=== PATIENT | female | born 1965 | race Asian ===

== ENCOUNTER → 2019-06-16 07:50 | Outpatient (CLI) | payer BC, SELFPAY ==
[2019-06-16 08:16] LABS: Add Manual Diff / Slide Review NO; Basophils Absolute Auto 0 /uL (0-100); Basophils Percent Auto 0.9 % (0-2); Eosinophils Absolute Auto 100 /uL (0-450); Eosinophils Percent Auto 1.3 % (2-4); Hematocrit 40.8 % (36-46); Hemoglobin 14.3 g/dL (12.0-16.0); Lymphocytes Absolute Auto 1900 /uL (1100-4500); Lymphocytes Percent Auto 34.4 % (25-40); Mean Corpuscular Hemoglobin 31.8 PG (26-34); Mean Corpuscular Volume 90.8 fL (80-100); Monocytes Absolute Auto 400 /uL (0-900); Monocytes Percent Auto 6.7 % (3-14); Neutrophils Absolute Auto 3100 /uL (1500-7000); Neutrophils Percent Auto 56.7 % (50-75); Platelet Count 245 X10^3/uL (150-400); Red Blood Cell Count 4.49 X10^6/uL (4.0-5.2); Red Cell Distribution Width 13.2 % (11.6-14.8); White Blood Cell Count 5.4 X10^3/uL (4.5-11.0)
[2019-06-16 08:26] LABS: Alanine Aminotransferase 16 IU/L (<35); Albumin 4.7 g/dL (3.5-5.0); Albumin Globulin Ratio 1.3 (1.0-2.8); Alkaline Phosphatase 55 U/L (38-126); Aspartate Aminotransferase 32 IU/L (14-36); BUN Creatinine Ratio 24.5 (6-22); Blood Urea Nitrogen 13 mg/dL (7-17); Calcium 9.5 mg/dL (8.4-10.2); Carbon Dioxide 28 mmol/L (22-32); Chloride 106 mmol/L (98-107); Cholesterol 221 mg/dL (140-199); Estimated Glomerular Filt Rate > 60.0 mL/min (>60); Globulin 3.5 g/dL (1.7-4.1); Glucose 100 mg/dL (70-100); HDL Cholesterol 61 mg/dL (40-60); HEMOLYSIS < 15 (0-50); LDL Cholesterol Calculated 146 mg/dL (<100); Potassium 3.7 mmol/L (3.4-5.1); Sodium 142 mmol/L (137-145); Total Protein 8.2 g/dL (6.3-8.2); Triglycerides 69 mg/dL (35-150)
[2019-06-16 10:15] LABS: Free T3, Triiodothyronine Free 3.27 pg/mL (2.77-5.27)
[2019-06-16 10:30] LABS: Thyroid Stimulating Hormone 1.19 uIU/mL (0.47-4.68)
== END ==
PROVIDERS: PCP Family Medicine; Referring Provider Family Medicine; Visit Provider Family Medicine
DX: Z13.220 Encounter for screening for lipoid disorders (principal); Z86.39 Personal history of other endocrine, nutritional and metabolic disease; E03.9 Hypothyroidism, unspecified; E55.9 Vitamin D deficiency, unspecified
CPT/HCPCS: 36415; 80053; 80061; 82306; 84439; 84443; 84481; 85025

== ENCOUNTER → 2020-04-08 15:21 | Outpatient (CLI) | payer OTHER, SELFPAY ==
--- NOTE | 2020-04-08 | DI.CT.S_ITS ---
PROCEDURE: CT HEAD/BRAIN WO CON INDICATIONS: Headache, unspecified TECHNIQUE: Noncontrast 4.5 mm thick angled axial sections acquired from the foramen magnum to the vertex, with coronal and sagittal reformats. For radiation dose reduction, the following was used: automated exposure control, adjustment of mA and/or kV according to patient size. COMPARISON: [facility], CT, CT HEAD WITHOUT CONTRAST, 03/01/2020, 19:11. FINDINGS: Image quality: Excellent. CSF spaces: Basal cisterns are patent. No extra-axial fluid collections. Ventricles are normal in size and shape. Brain: No midline shift. No intracranial masses or hemorrhage. Mir-white matter interface is normal. Skull and face: Calvarium and visualized facial bones are intact, without suspicious lesions. Sinuses: Visualized sinuses and mastoids are clear. IMPRESSION: No acute intracranial abnormality. Dictated by: Chava Paula M.D. on 04/08/2020 at 15:52 Approved by: Chava Paula M.D. on 04/08/2020 at 15:53
== END ==
PROVIDERS: PCP Family Medicine; Referring Provider Internal Medicine; Visit Provider Internal Medicine
DX: R51.9 Headache, unspecified (principal)
CPT/HCPCS: 70450

== ENCOUNTER → 2020-05-22 07:54 | Outpatient (CLI) | payer OTHER, SELFPAY ==
[2020-05-22 09:02] LABS: Alanine Aminotransferase 17 IU/L (<35); Albumin 4.2 g/dL (3.5-5.0); Albumin Globulin Ratio 1.4 (1.0-2.8); Alkaline Phosphatase 62 U/L (38-126); Aspartate Aminotransferase 26 IU/L (14-36); BUN Creatinine Ratio 22.8 (6-22); Bilirubin Total 0.7 mg/dL (0.2-1.3); Blood Urea Nitrogen 13 mg/dL (7-17); Calcium 9.4 mg/dL (8.4-10.2); Carbon Dioxide 25 mmol/L (22-32); Chloride 104 mmol/L (98-107); Cholesterol 231 mg/dL (140-199); Estimated Glomerular Filt Rate > 60.0 mL/min (>60); Globulin 3.1 g/dL (1.7-4.1); Glucose 96 mg/dL (70-100); HDL Cholesterol 68 mg/dL (40-60); HEMOLYSIS < 15 (0-50); LDL Cholesterol Calculated 147 mg/dL (<100); Potassium 3.9 mmol/L (3.4-5.1); Sodium 140 mmol/L (137-145); Total Protein 7.3 g/dL (6.3-8.2); Triglycerides 80 mg/dL (35-150)
== END ==
PROVIDERS: PCP Internal Medicine; Referring Provider Internal Medicine; Visit Provider Internal Medicine
DX: E78.5 Hyperlipidemia, unspecified (principal)
CPT/HCPCS: 36415; 80053; 80061; 84443

== ENCOUNTER → 2020-12-24 07:38 | Outpatient (CLI) | payer OTHER, SELFPAY ==
[2020-12-24 09:59] LABS: COVID19 -Nasal RAPID POSITIVE (Negative)
== END ==
PROVIDERS: PCP Internal Medicine; Referring Provider Nurse Practitioner Family; Visit Provider Nurse Practitioner Family
DX: Z20.822 Contact with and (suspected) exposure to COVID-19 (principal)
CPT/HCPCS: 87635

== ENCOUNTER → 2021-06-11 15:40 | Outpatient (CLI) | payer OTHER, SELFPAY ==
--- NOTE | 2021-06-11 | DI.MG.S_ITS ---
BILATERAL DIGITAL SCREENING MAMMOGRAM 3D/2D WITH CAD: 06/11/2021 CLINICAL: Routine screening. Comparison is made to exams dated: 01/14/2017 mammogram, 10/04/2015 mammogram, and 07/05/2013 mammogram - outside location. The tissue of both breasts is heterogeneously dense. This may lower the sensitivity of mammography. Current study was also evaluated with a Computer Aided Detection (CAD) system. No significant masses, calcifications, or other findings are seen in either breast. There has been no significant interval change. IMPRESSION: NEGATIVE There is no mammographic evidence of malignancy. A 1 year screening mammogram is recommended. This exam was interpreted at Station ID: [id number]. NOTE: For mammograms, a report in lay terms will be sent to the patient. Approximately 15% of breast malignancies will not be visualized mammographically. In the management of a palpable breast mass, a negative mammogram must not discourage biopsy of a clinically suspicious lesion. Electronically Signed By: Ajay chanel/tori:06/11/2021 16:47:17 letter sent: Normal Exam ACR BI-RADS Category 1: Negative [id number]
== END ==
PROVIDERS: PCP Internal Medicine; Referring Provider Internal Medicine; Visit Provider Internal Medicine
DX: Z12.31 Encounter for screening mammogram for malignant neoplasm of breast (principal)
CPT/HCPCS: 77063; 77067

== ENCOUNTER → 2022-01-20 13:43 | Outpatient (CLI) | payer OTHER, SELFPAY ==
--- NOTE | 2022-01-20 | DI.MRI.S_ITS ---
PROCEDURE: MR HEAD/BRAIN WO CON INDICATIONS: CHRONIC POST TRAUMATIC HEADACHE TECHNIQUE: Noncontrast axial T1 spin echo, axial T2 fast spin echo, sagittal and axial FLAIR, coronal T2 fast spin echo, axial gradient echo, axial diffusion and ADC through the brain. COMPARISON: None. FINDINGS: Image quality: Excellent. CSF Spaces: Basal cisterns are patent. No extra-axial fluid collections. Ventricles are normal in size and shape. Brain: No intracranial masses or hemorrhage. There is mild diffuse cerebral volume loss. Minimal degree of scattered punctate high FLAIR signal foci within the periventricular and subcortical white matter. Mir/white matter interface is normal. Brainstem appears normal. Diffusion-weighted images demonstrate no acute ischemic insult. No chronic ischemic insults. Normal intravascular flow voids are present. Skull and face: Calvarium has normal marrow signal. Orbits appear normal. Sinuses: Sinuses and mastoids are clear. IMPRESSION: 1. No acute process. 2. Mild volume loss. Minimal small vessel ischemic disease. 3. No recent infarct. Dictated by: Marlin Gutierres M.D. on 01/20/2022 at 14:17 Transcribed by: MANUEL on 01/20/2022 at 14:25 Approved by: Marlin Gutierres M.D. on 01/20/2022 at 15:25
== END ==
PROVIDERS: PCP Internal Medicine; Referring Provider Internal Medicine; Visit Provider Internal Medicine
DX: G44.329 Chronic post-traumatic headache, not intractable (principal)
CPT/HCPCS: 70551

== ENCOUNTER 2022-04-26 10:06 | Observation (INO) | payer OTHER, SELFPAY ==
[2022-04-26] VITALS (17 sets, daily range): BP systolic 119–190; BP diastolic 51–99; PULSE 54–62; RESP 16–20; TEMP 36.6–36.9; O2SAT 91–990; BMI 22.8
--- NOTE | 2022-04-26 10:19 | ED.ABDPAIN ---
HPI - Abdominal Pain General Stated Complaint: lower abd pain Time Seen by Provider: 04/26/22 10:16 History of Present Illness HPI narrative: Patient comes in with less than 24 hours of abdominal pain and nausea. The pain started last night. It is associated with nausea but not vomiting. No dysuria, no diarrhea. No flank pain. No chest pain no shortness of breath. No fever. No previous abdominal surgeries. She did have takasubo's cardiomyopathy some years ago. Again she has no chest pain. Pain was initially right lower quadrant but now is more generalized. She did have a bowel obstruction resolved with decompression some years ago. She does not consume alcohol. Normal bowel movement this morning. Related Data Previous Rx's Medication Instructions Recorded albuterol sulfate 90 mcg/actuation 2 puff inhalation Q4-6H PRN 02/03/19 aerosol inhaler (Ventolin HFA) shortness of breath or wheezing #8.5 grams inhalational spacing device #1 ea 02/03/19 (Aerochamber Plus Z Stat spacer) acyclovir 400 mg tablet 400 mg PO TID #30 tabs 04/26/19 estradiol 0.01% (0.1 mg/gram) 1 gram vaginal DAILY #42.5 grams 07/28/19 vaginal cream (Estrace) levothyroxine 75 mcg tablet 75 mcg PO DAILY #90 tabs 02/20/20 (Synthroid) benzonatate 100 mg capsule 100 mg PO BID PRN cough #20 caps 12/24/20 (Tessalon Perles) Allergies Allergy/AdvReac Type Severity Reaction Status Date / Time No Known Drug Allergies Allergy Verified 08/15/21 15:57 Patient History Medical History (Updated 12/24/20 @ 08:16 by PARVEEN Rush) Bilateral foot pain Cervical somatic dysfunction Chronic neck pain Chronic thoracic back pain Cranial somatic dysfunction Family history of breast cancer in first degree relative Head injury Hx of radioactive iodine thyroid ablation Hypothyroidism (acquired) Neck stiffness Segmental and somatic dysfunction of rib cage Shoulder pain Skin rash Somatic dysfunction of lower extremity Thoracic region somatic dysfunction Thyroid nodule Vaginal dryness, menopausal Well woman exam with routine gynecological exam Family History Father Stroke Mother Stroke Social History Smoking Status: Never smoker alcohol intake: never substance use type: does not use Smoking Status: Never smoker Exam Narrative Exam Narrative: GENERAL: Alert, cooperative and in no distress. HEAD: Atraumatic. Normocephalic. EYES: Sclera are clear without icterus. Extraocular movements are full. ENT: No rhinorrhea. Oropharynx is moist. Mouth exam is benign. NECK: Supple. Full range of motion. CARDIOVASCULAR: Normal rate and rhythm without murmur gallop or rub. RESPIRATORY: Clear to auscultation. Breath sounds equal bilaterally. No wheezes, rales, or rhonchi. GASTROINTESTINAL: Soft, no guarding. Diffuse tenderness is present. No rebound tenderness. Normal bowel sounds EXTREMITIES: No edema, full range of motion. No obvious trauma. BACK: Normal inspection, no CVA tenderness. NEURO: Nonfocal examination, normal speech, normal gait. SKIN: No rash or erythema of visible areas PSYCH: Normally oriented. Normal range of affect. Appropriate behavior Discharge Plan Departure Prescriptions: No Action albuterol sulfate [Ventolin HFA] 90 mcg/actuation HFA aerosol inhaler 2 puff INHALATION Q4-6H PRN (Reason: shortness of breath or wheezing) Qty: 8.5 0RF (DME) Aerochamber Plus Z Stat Spacer See Rx Instructions .ROUTE .MEDSUPPLY Qty: 1 0RF Rx Instructions: As directed levothyroxine [Synthroid] 75 mcg tablet 75 mcg PO DAILY Qty: 90 1RF benzonatate [Tessalon Perles] 100 mg capsule 100 mg PO BID PRN (Reason: cough) Qty: 20 0RF acyclovir 400 mg tablet 400 mg PO TID Qty: 30 1RF estradiol [Estrace] 0.01 % (0.1 mg/gram) cream 1 gram VAG DAILY Qty: 42.5 0RF Rx Instructions: for 14 days, then twice weekly Referrals: Lise Hutchins MD [Primary Care Provider] -
--- NOTE | 2022-04-26 10:22 | DI.CT.S_ITS ---
PROCEDURE: CT ABDOMEN PELVIS W CON INDICATIONS: Fever and abdominal pain TECHNIQUE: After the administration of intravenous contrast, axial sections acquired from the lung bases to the pubic symphysis. Coronal and sagittal reformats were performed. For radiation dose reduction, the following was used: automated exposure control, adjustment of mA and/or kV according to patient size. COMPARISON: None. FINDINGS: Image quality: Excellent. Lung bases: Unremarkable. Heart: No significant findings. ABDOMEN: Liver: Hepatic cyst near the liver. Hepatic steatosis with geographic fatty infiltration near the falciform ligament.. Gallbladder: Unremarkable. Biliary ducts: Unremarkable. Pancreas: Unremarkable. Spleen: Unremarkable. Adrenal Glands: Unremarkable. Kidneys and Ureters: Unremarkable. Stomach and Bowel: Multiple loops of fluid-filled small bowel with mild distention with a transition point within the right lower quadrant. Scattered colon diverticula without evidence of acute diverticulitis. Peritoneum: No abnormal intraperitoneal fluid. No free air. Ventral Wall: No hernias. Abdominal Nodes: No retroperitoneal or mesenteric adenopathy by size criteria. Vessels: Aorta and inferior vena cava are normal in size. PELVIS: Pelvic Organs: Unremarkable. Bladder: Unremarkable. Pelvic Nodes: No enlarged lymph nodes. Miscellaneous: No hernias are seen. Bones: Unremarkable. IMPRESSION: Dilated loops of small bowel with transition point in right lower quadrant consistent with small bowel obstruction. Dictated by: Adriel Paula M.D. on 04/26/2022 at 10:16 Approved by: Adriel Paula M.D. on 04/26/2022 at 10:24
[2022-04-26 10:34] LABS: Add Manual Diff / Slide Review NO; Basophils Absolute Auto 0 /uL (0-100); Basophils Percent Auto 0.4 % (0-2); Eosinophils Absolute Auto 0 /uL (0-450); Eosinophils Percent Auto 0.4 % (2-4); Hematocrit 42.8 % (36-46); Hemoglobin 14.7 g/dL (12.0-16.0); Lymphocytes Absolute Auto 1900 /uL (1100-4500); Lymphocytes Percent Auto 15.6 % (25-40); Mean Corpuscular HGB Conc 34.3 % (30-36); Mean Corpuscular Hemoglobin 31.2 PG (26-34); Monocytes Absolute Auto 400 /uL (0-900); Monocytes Percent Auto 3.3 % (3-14); Neutrophils Absolute Auto 9800 /uL (1500-7000); Neutrophils Percent Auto 80.3 % (50-75); Platelet Count 292 X10^3/uL (150-400); White Blood Cell Count 12.2 X10^3/uL (4.5-11.0)
[2022-04-26 10:45] LABS: Alanine Aminotransferase 21 IU/L (<35); Albumin 4.7 g/dL (3.5-5.0); Albumin Globulin Ratio 1.2 (1.0-2.8); Alkaline Phosphatase 60 U/L (38-126); Aspartate Aminotransferase 32 IU/L (14-36); BUN Creatinine Ratio 26.1 (6-22); Bilirubin Total 0.9 mg/dL (0.2-1.3); Blood Urea Nitrogen 12 mg/dL (7-17); Calcium 9.5 mg/dL (8.4-10.2); Carbon Dioxide 24 mmol/L (22-32); Chloride 105 mmol/L (98-107); Estimated Glomerular Filt Rate > 60 mL/min (>60); Globulin 3.9 g/dL (1.7-4.1); Glucose 103 mg/dL (70-100); HEMOLYSIS 68 (0-50); Lipase 186 U/L (23-300); Potassium 4.2 mmol/L (3.4-5.1); Sodium 138 mmol/L (137-145); Total Protein 8.6 g/dL (6.3-8.2)
[2022-04-26 10:48] LABS: COVID19 -Nasal RAPID Negative (Negative)
--- NOTE | 2022-04-26 11:09 | ED.GENADULT ---
HPI - General Adult General Chief complaint: Abdominal Pain Stated complaint: lower abd pain Time Seen by Provider: 04/26/22 10:16 History of Present Illness HPI narrative: This note should be merged with my other note from today Related Data Previous Rx's Medication Instructions Recorded albuterol sulfate 90 mcg/actuation 2 puff inhalation Q4-6H PRN 02/03/19 aerosol inhaler (Ventolin HFA) shortness of breath or wheezing #8.5 grams inhalational spacing device #1 ea 02/03/19 (Aerochamber Plus Z Stat spacer) acyclovir 400 mg tablet 400 mg PO TID #30 tabs 04/26/19 estradiol 0.01% (0.1 mg/gram) 1 gram vaginal DAILY #42.5 grams 07/28/19 vaginal cream (Estrace) levothyroxine 75 mcg tablet 75 mcg PO DAILY #90 tabs 02/20/20 (Synthroid) benzonatate 100 mg capsule 100 mg PO BID PRN cough #20 caps 12/24/20 (Tessalon Perlmark) Allergies Allergy/AdvReac Type Severity Reaction Status Date / Time No Known Drug Allergies Allergy Verified 08/15/21 15:57 Patient History Medical History (Updated 12/24/20 @ 08:16 by PARVEEN Rush) Bilateral foot pain Cervical somatic dysfunction Chronic neck pain Chronic thoracic back pain Cranial somatic dysfunction Family history of breast cancer in first degree relative Head injury Hx of radioactive iodine thyroid ablation Hypothyroidism (acquired) Neck stiffness Segmental and somatic dysfunction of rib cage Shoulder pain Skin rash Somatic dysfunction of lower extremity Thoracic region somatic dysfunction Thyroid nodule Vaginal dryness, menopausal Well woman exam with routine gynecological exam Family History Father Stroke Mother Stroke Social History Smoking Status: Never smoker alcohol intake: never substance use type: does not use Smoking Status: Never smoker Exam Initial Vital Signs Initial Vital Signs: Vital Signs Pulse Rate 62 04/26/22 10:32 Respiratory Rate 16 04/26/22 10:32 Blood Pressure 186/86 H 04/26/22 10:32 Pulse Oximetry 100 04/26/22 10:32 Oxygen Delivery Method Room Air 04/26/22 10:32 Course Course Course Narrative: Fairly severe abdominal pain that is diffuse. Will proceed with CBC, CMP, lipase, urinalysis and CT abdomen and pelvis with contrast. Laboratory data is largely reassuring other than mild leukocytosis. Lipase and CMP are unremarkable. 1137: CT shows a small bowel obstruction will admit to the hospital. Laboratory data is largely reassuring. Orders Ordered: ED Orders 04/26/22 10:22 CT abdomen pelvis w con Stat UA dip and micro [Urinalysis and Microscopic] Stat 04/26/22 10:25 CBC Auto Diff [Complete Blood Count AUTO DIFF] Stat CMP [Comprehensive Metabolic Panel] Stat Lipase Stat 04/26/22 10:30 COVID19 -Nasal RAPID Stat Ondansetron HCl (Ondansetron 4 Mg/2 Ml Inj) 4 mg IV Q2HR PRN PRN Reason: Nausea And Vomiting Last Admin: 04/26/22 11:18 Dose: 4 mg Discontinued Medications Acetaminophen (Acetaminophen 325 Mg Tablet) 975 mg PO NOW ONE Stop: 04/26/22 10:22 Last Admin: 04/26/22 11:18 Dose: Not Given Sodium Chloride (Normal Saline 0.9%) 1,000 mls @ 1,000 mls/hr IV BOLUS ONE Stop: 04/26/22 11:20 Last Admin: 04/26/22 11:18 Dose: 1,000 mls/hr Ketorolac Tromethamine (Ketorolac 30 Mg/Ml Vial) 15 mg IV NOW ONE Stop: 04/26/22 10:22 Last Admin: 04/26/22 11:18 Dose: 15 mg Vital Signs Vital signs: Vital Signs - 8 hr 04/26/22 10:32 Pulse Rate 62 Respiratory Rate 16 Blood Pressure 186/86 H Pulse Oximetry 100 Oxygen Delivery Method Room Air Medical Decision Making Lab Data 04/26/22 10:25 04/26/22 10:25 Labs: Lab Results 04/26/22 04/26/22 04/26/22 Range/Units 10:25 10:25 10:30 WBC 12.2 H (4.5-11.0) X10^3/uL RBC 4.70 (4.0-5.2) X10^6/uL Hgb 14.7 (12.0-16.0) g/dL Hct 42.8 (36-46) % MCV 91.0 (80-100) fL MCH 31.2 (26-34) PG MCHC 34.3 (30-36) % RDW 13.0 (11.6-14.8) % Plt Count 292 (150-400) X10^3/uL Neut % (Auto) 80.3 H (50-75) % Lymph % (Auto) 15.6 L (25-40) % [place] % (Auto) 3.3 (3-14) % Eos % (Auto) 0.4 L (2-4) % Baso % (Auto) 0.4 (0-2) % Neut # (Auto) 9800 H (5033-6311) /uL Lymph # (Auto) 1900 (1162-8893) /uL [place] # (Auto) 400 (0-900) /uL Eos # (Auto) 0 (0-450) /uL Baso # (Auto) 0 (0-100) /uL Sodium 138 (137-145) mmol/L Potassium 4.2 (3.4-5.1) mmol/L Chloride 105 (98-107) mmol/L Carbon Dioxide 24 (22-32) mmol/L BUN 12 (7-17) mg/dL Creatinine 0.46 L (0.52-1.04) mg/dL Estimated GFR > 60 (>60) mL/min BUN/Creatinine Ratio 26.1 H (6-22) Glucose 103 H (70-100) mg/dL Calcium 9.5 (8.4-10.2) mg/dL Total Bilirubin 0.9 (0.2-1.3) mg/dL AST 32 (14-36) IU/L ALT 21 (<35) IU/L Alkaline Phosphatase 60 (38-126) U/L Total Protein 8.6 H (6.3-8.2) g/dL Albumin 4.7 (3.5-5.0) g/dL Globulin 3.9 (1.7-4.1) g/dL Albumin/Globulin Ratio 1.2 (1.0-2.8) Lipase 186 (23-300) U/L SARS-CoV-2 (PCR) Negative (Negative) Discharge Plan Departure Prescriptions: No Action albuterol sulfate [Ventolin HFA] 90 mcg/actuation HFA aerosol inhaler 2 puff INHALATION Q4-6H PRN (Reason: shortness of breath or wheezing) Qty: 8.5 0RF (DME) Aerochamber Plus Z Stat Spacer See Rx Instructions .ROUTE .MEDSUPPLY Qty: 1 0RF Rx Instructions: As directed levothyroxine [Synthroid] 75 mcg tablet 75 mcg PO DAILY Qty: 90 1RF benzonatate [Tessalon Perles] 100 mg capsule 100 mg PO BID PRN (Reason: cough) Qty: 20 0RF acyclovir 400 mg tablet 400 mg PO TID Qty: 30 1RF estradiol [Estrace] 0.01 % (0.1 mg/gram) cream 1 gram VAG DAILY Qty: 42.5 0RF Rx Instructions: for 14 days, then twice weekly Referrals: Lise Hutchins MD [Primary Care Provider] -
[2022-04-26] MEDS: SODIUM CHLORIDE 0.9% 1,000 ML 1000 ML IV (11:18)
[2022-04-26] MEDS: KETOROLAC 30 MG/ML VIAL 15 MG IV ×2 (11:18→17:25)
[2022-04-26] MEDS: ONDANSETRON 4 MG/2 ML INJ IV (11:18)
[2022-04-26 12:29] LABS: Appearance Urine UA CLEAR; Bilirubin Urine UA NEGATIVE (NEGATIVE); Color Urine UA YELLOW; Glucose Urine UA NEGATIVE (Negative); Ketones Urine UA TRACE (NEGATIVE); Leukocyte Esterase Urine UA NEGATIVE (NEGATIVE); Nitrite Urine UA NEGATIVE (Negative); Occult Blood Urine UA NEGATIVE (Negative); Protein Urine UA NEGATIVE (Negative); Urobilinogen Urine UA 0.2 E.U./dL (0.2)
[2022-04-26 12:30] LABS: pH Urine UA 5.5 (4.5-8.0)
[2022-04-26 12:38] LABS: Bacteria Urine Occasional (0-1); Culture Indicated Urine Cult Not Indicated; RBC Urine 0-1/HPF (0-5/HPF); Squamous Epithelial Cell Urine 0-1 /HPF (0-5/HPF); WBC Urine 0-1/HPF (0-5/HPF)
--- NOTE | 2022-04-26 13:16 | P.HP_ITS ---
History of Present Illness History of Present Illness Date Patient Seen: 04/26/22 Time Patient Seen: 15:00 Date of Onset of Symptoms: 04/26/22 Chief complaint: lower abd pain Narrative: 57 yea old female with PMH of takotsubo's cardiomyopathy (2020), hypothyroidism, prior SBO, who presents with one day abdominal pain. Pain started very early this morning, she denies any nausea. Pain is diffuse, feels like a distension. There is no radiation. She did have a normal bowel movement this morning. She had two prior SBOs in the past, and initially stated she did not have any previous abdominal surgeries but later endorsed tubal ligation to this provider. She denies fever, chills, chest pain, shortness of breath, dysuria, urinary frequency, hematuria, melena or hematochezia. In the ER, CT scan showed an SBO with transition point in the RLQ. Vital signs were notable for mild hypertension. Labs notable for a mild leukocytosis with WBC 12.2, but the remainder or her labs were unremarkable including chemistries. UA was not indicative for infection. [facility]'s sanitation equipement is currently not functional, general surgery was contacted by the emergency room physician who stated there would be no issues should patient require surgery, and okay for admission here. She was admitted for further management. NG tube placement was unsuccessful in the ER, given lack of vomiting repeat attempts were not made at this time. No EKG was performed, this has been ordered. Patient History Medical History Bilateral foot pain Cervical somatic dysfunction Chronic neck pain Chronic thoracic back pain Cranial somatic dysfunction Family history of breast cancer in first degree relative Head injury History of left heart catheterization Hx of radioactive iodine thyroid ablation Hypothyroidism (acquired) Neck stiffness Segmental and somatic dysfunction of rib cage Shoulder pain Skin rash Somatic dysfunction of lower extremity Thoracic region somatic dysfunction Thyroid nodule Vaginal dryness, menopausal Well woman exam with routine gynecological exam Surgical History H/O tubal ligation Family & Social History Family History Father Stroke Mother Stroke Safety & Behavioral: Feels Safe in Current Yes Environment Been Physically Hurt or No Threatened By a Person Tobacco & Substance use: Smoking Status Never smoker alcohol intake never Meds Home Medications and Allergies Home Medications Medication Instructions Recorded Confirmed Type levothyroxine 75 mcg tablet 75 mcg PO DAILY #90 tabs 02/20/20 04/26/22 Rx (Synthroid) lisinopril 20 mg tablet 20 mg PO DAILY 04/26/22 04/26/22 History Allergies Allergy/AdvReac Type Severity Reaction Status Date / Time bacitracin AdvReac Intermediate Rash Verified 04/26/22 14:01 Review of Systems Review of Systems Narrative: All other systems reviewed with the patient and are negative unless otherwise stated. Exam Vital Signs (past 8 hours): - 04/26/22 10:32 04/26/22 10:28 04/26/22 10:29 Pulse Rate 62 62 62 Respiratory Rate 16 Blood Pressure 186/86 H Pulse Oximetry 100 100 100 Oxygen Delivery Method Room Air 04/26/22 10:29 04/26/22 10:30 04/26/22 11:00 Pulse Rate 60 62 Respiratory Rate Blood Pressure 167/79 H Pulse Oximetry 91 100 Oxygen Delivery Method 04/26/22 11:30 04/26/22 11:57 04/26/22 11:57 Pulse Rate 56 L 54 L Respiratory Rate Blood Pressure 143/67 H Pulse Oximetry 97 98 Oxygen Delivery Method 04/26/22 12:00 04/26/22 12:00 04/26/22 12:28 Pulse Rate 54 L 60 Respiratory Rate Blood Pressure 128/64 Pulse Oximetry 98 92 Oxygen Delivery Method Room Air 04/26/22 12:28 04/26/22 12:30 04/26/22 12:31 Pulse Rate 56 L 57 L Respiratory Rate Blood Pressure 163/74 H Pulse Oximetry 100 100 Oxygen Delivery Method 04/26/22 12:31 04/26/22 12:34 04/26/22 12:34 Pulse Rate 58 L Respiratory Rate Blood Pressure 145/82 H 119/99 H Pulse Oximetry 100 Oxygen Delivery Method 04/26/22 13:00 04/26/22 13:00 Pulse Rate 54 L Respiratory Rate Blood Pressure 162/77 H Pulse Oximetry 98 Oxygen Delivery Method Room Air Oxygen Delivery Method Room Air Narrative Exam Narrative: General:? Patient is well developed and well nourished, in no distress at this time. HEENT:? Normocephalic, atraumatic, extraocular muscles intact, oral pharynx is clear and mucous membranes are moist. Neck: supple and symmetric, trachea is midline, no cervical adenopathy. Negative for JVD Chest:? Normal AP diameter and contour without kyphoscoliosis, no tachypnea, equal chest rise bilaterally. Lungs:? CTA b/l no wheezing rhonchi or rales. Cardio:?RRR no m/r/g. Abdomen: soft non-distended, diffuse mild tenderness (not localized to any particular quadrant). Musculoskeletal:? Muscle strength and tone are equal within normal limits, no deformity. Extremities: No edema or joint effusions. No cyanosis or clubbing. Skin:? Pale,? Warm to touch,dry and intact without rashes, ulcerations or petechiae.? Neuro:? Alert and orientated x3,? sensation to touch intact in all extremities, no gross deficits noted of cranial nerves. Psych:? Patient has a well-kept appearance, appropriate affect, mental status attitude thought context and judgment are appropriate for age. Objective Labs 04/26/22 10:25 04/26/22 10:25 Labs: Laboratory Results - last 24 hr 04/26/22 04/26/22 04/26/22 10:25 10:25 10:30 WBC 12.2 H RBC 4.70 Hgb 14.7 Hct 42.8 MCV 91.0 MCH 31.2 MCHC 34.3 RDW 13.0 Plt Count 292 Neut % (Auto) 80.3 H Lymph % (Auto) 15.6 L [place] % (Auto) 3.3 Eos % (Auto) 0.4 L Baso % (Auto) 0.4 Neut # (Auto) 9800 H Lymph # (Auto) 1900 [place] # (Auto) 400 Eos # (Auto) 0 Baso # (Auto) 0 Sodium 138 Potassium 4.2 Chloride 105 Carbon Dioxide 24 BUN 12 Creatinine 0.46 L Estimated GFR > 60 BUN/Creatinine Ratio 26.1 H Glucose 103 H Calcium 9.5 Total Bilirubin 0.9 AST 32 ALT 21 Alkaline Phosphatase 60 Total Protein 8.6 H Albumin 4.7 Globulin 3.9 Albumin/Globulin Ratio 1.2 Lipase 186 Urine Color Urine Appearance Urine pH Ur Specific [place] Urine Protein Urine Glucose (UA) Urine Ketones Urine Occult Blood Urine Nitrate Urine Bilirubin Urine Urobilinogen Ur Leukocyte Esterase Urine RBC Urine WBC Ur Squamous Epith Cells Urine Bacteria Ur Culture Indicated? SARS-CoV-2 (PCR) Negative 04/26/22 11:15 WBC RBC Hgb Hct MCV MCH MCHC RDW Plt Count Neut % (Auto) Lymph % (Auto) [place] % (Auto) Eos % (Auto) Baso % (Auto) Neut # (Auto) Lymph # (Auto) [place] # (Auto) Eos # (Auto) Baso # (Auto) Sodium Potassium Chloride Carbon Dioxide BUN Creatinine Estimated GFR BUN/Creatinine Ratio Glucose Calcium Total Bilirubin AST ALT Alkaline Phosphatase Total Protein Albumin Globulin Albumin/Globulin Ratio Lipase Urine Color Yellow Urine Appearance Clear Urine pH 5.5 Ur Specific [place] 1.020 Urine Protein Negative Urine Glucose (UA) Negative Urine Ketones Trace H Urine Occult Blood Negative Urine Nitrate Negative Urine Bilirubin Negative Urine Urobilinogen 0.2 Ur Leukocyte Esterase Negative Urine RBC 0-1/hpf Urine WBC 0-1/hpf Ur Squamous Epith Cells 0-1 /hpf Urine Bacteria Occasional (0-1) Ur Culture Indicated? Cult not indicated SARS-CoV-2 (PCR) Assessment & Plan Assessment & Plan narrative: 1. 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 - CRP and ESR low, mild leukocytosis but suspect reactive. Does have history of tubal ligation after further discussion. - General surgery consultation, ordered via ER provider. Appreciate consultation. - continue NPO, IV fluids for now. - NG tube if emesis, or worsening distension. - symptom relief with pain medication and anti nausea medications prn. 2. HTN - hold given SBO for now, if marked hypertension work on pain control then may consider enaprilat IV as home medication is lisinopril. 3. history of takotsubo's cardiomyopathy - no current symptoms, will check EKG for baseline study but no chest pain. - no indication for echo currently - history of LV thrombus previously on AC, no longer on this medciation - will hold lisinopril as noted above - tele for 24 hours given history of cardiomyopathy, NPO status with possibility for electrolyte abnormalitites. 4. Hypothyroidism - hold home levothyroxine for now, restart when tolerating oral intake. Code: Full, surrogate is beka Dispo: admitted as observation, anticipate discharge home once SBO resolves. I have utilized all available immediate resources to obtain, update, or review the patient's current medications. Covid: Negative Discussed care with patient, ER provider, and spouse at bedside. Additional history obtained via spouse as well as patient and ER provider. Relevant prior documentation including summary regarding takotsubo's diagnosis, relevant lab work and imaging was personally reviewed. Time Spent With Patient Critical Care time: I spent a total of [] minutes of critical care time on this patient's care today; this time is exclusive of procedural time. Quality MIPS - Admit I confirm the patient?s Advance Care Plan is present, Code status is documented, Surrogate decision maker is in patient?s record [If Yes, STOP here]: Yes
[2022-04-26 13:36] LABS: C-Reactive Protein Quant < 0.5 mg/dL (<1.0)
[2022-04-26 13:47] LABS: Erythrocyte Sedimentation Rate 6 MM/HR (0-20)
[2022-04-26] MEDS: LACTATED RINGERS 1,000 ML 100 ML IV (14:09)
[2022-04-27] VITALS: BP 131/77; PULSE 47; RESP 18; TEMP 36.6; O2SAT 98
[2022-04-27] MEDS: LACTATED RINGERS 1,000 ML 100 ML IV (00:16)
[2022-04-27] MEDS: KETOROLAC 30 MG/ML VIAL 15 MG IV ×2 (04:36→10:38)
[2022-04-27 04:41] VITALS: BP 132/54; PULSE 47; RESP 18; TEMP 36.6; O2SAT 98
[2022-04-27 05:09] LABS: Add Manual Diff / Slide Review NO; Basophils Absolute Auto 100 /uL (0-100); Basophils Percent Auto 1.5 % (0-2); Eosinophils Absolute Auto 100 /uL (0-450); Hematocrit 35.6 % (36-46); Hemoglobin 12.3 g/dL (12.0-16.0); Lymphocytes Absolute Auto 1300 /uL (1100-4500); Lymphocytes Percent Auto 24.3 % (25-40); Mean Corpuscular HGB Conc 34.5 % (30-36); Mean Corpuscular Volume 89.9 fL (80-100); Monocytes Absolute Auto 300 /uL (0-900); Monocytes Percent Auto 5.7 % (3-14); Neutrophils Absolute Auto 3600 /uL (1500-7000); Neutrophils Percent Auto 66.5 % (50-75); Platelet Count 243 X10^3/uL (150-400); Red Blood Cell Count 3.96 X10^6/uL (4.0-5.2); Red Cell Distribution Width 12.7 % (11.6-14.8); White Blood Cell Count 5.5 X10^3/uL (4.5-11.0)
[2022-04-27 05:17] LABS: BUN Creatinine Ratio 18.8 (6-22); Blood Urea Nitrogen 9 mg/dL (7-17); Calcium 7.9 mg/dL (8.4-10.2); Carbon Dioxide 26 mmol/L (22-32); Chloride 110 mmol/L (98-107); Estimated Glomerular Filt Rate > 60 mL/min (>60); Glucose 83 mg/dL (70-100); HEMOLYSIS < 15 (0-50); Magnesium 1.9 mg/dL (1.6-2.3); Potassium 3.7 mmol/L (3.4-5.1); Sodium 138 mmol/L (137-145)
[2022-04-27 08:44] VITALS: BP 138/69; PULSE 52; RESP 16; TEMP 36.8; O2SAT 100
--- NOTE | 2022-04-27 09:43 | PM.CN ---
History of Present Illness Consult details Date Patient Seen: 04/27/22 Time Patient Seen: 09:43 Chief complaint: lower abd pain Reason for consult: SBO Requesting provider: Olman Limon Narrative: Couple days of abdominal discomfort and bloating, no BM for >24hrs. Had previous episode that spontaneously resolved. Pain was mid abdomen and crampy. Better today with decreased distention and discomfort. +flatus. Meds Home Medications and Allergies Home Medications Medication Instructions Recorded Confirmed Type levothyroxine 75 mcg tablet 75 mcg PO DAILY #90 tabs 02/20/20 04/26/22 Rx (Synthroid) lisinopril 20 mg tablet 20 mg PO DAILY 04/26/22 04/26/22 History Allergies Allergy/AdvReac Type Severity Reaction Status Date / Time bacitracin AdvReac Intermediate Rash Verified 04/26/22 14:01 Review of Systems Review of Systems ROS: Yes All systems reviewed with the patient and are negative except as otherwise documented Exam Vital Signs (past 8 hours): - 04/27/22 04:41 04/27/22 08:44 Temperature 97.9 F 98.3 F Pulse Rate 47 L 52 L Respiratory Rate 18 16 Blood Pressure 132/54 L 138/69 Pulse Oximetry 98 100 Oxygen Flow Rate 0 0 Oxygen Delivery Method Room Air Oxygen Flow Rate 0 Const General: cooperative, healthy appearing and comfortable [facility] Head: normocephalic and atraumatic Face and sinus: normal facial exam Eyes General: appearance normal, both eyes and all related structures Neck Neck: normal visual inspection and trachea midline Resp Effort & Inspection: normal respiratory effort and able to speak in complete sentences Cardio Rate: regular rate Rhythm: regular rhythm GI Palpation: soft Other: non tender, not distended. Skin General: no rashes or lesions noted and turgor normal Neuro General: patient alert, patient awake and patient oriented x3 Psych Mental Status: mental status grossly normal Judgment: judgment good Objective Labs 04/27/22 04:25 04/27/22 04:25 Labs: Laboratory Results - last 24 hr 04/26/22 04/26/22 04/26/22 10:25 10:25 10:25 WBC 12.2 H RBC 4.70 Hgb 14.7 Hct 42.8 MCV 91.0 MCH 31.2 MCHC 34.3 RDW 13.0 Plt Count 292 Neut % (Auto) 80.3 H Lymph % (Auto) 15.6 L [place] % (Auto) 3.3 Eos % (Auto) 0.4 L Baso % (Auto) 0.4 Neut # (Auto) 9800 H Lymph # (Auto) 1900 [place] # (Auto) 400 Eos # (Auto) 0 Baso # (Auto) 0 ESR 6 Sodium 138 Potassium 4.2 Chloride 105 Carbon Dioxide 24 BUN 12 Creatinine 0.46 L Estimated GFR > 60 BUN/Creatinine Ratio 26.1 H Glucose 103 H Calcium 9.5 Magnesium Total Bilirubin 0.9 AST 32 ALT 21 Alkaline Phosphatase 60 C-Reactive Protein Total Protein 8.6 H Albumin 4.7 Globulin 3.9 Albumin/Globulin Ratio 1.2 Lipase 186 Urine Color Urine Appearance Urine pH Ur Specific [place] Urine Protein Urine Glucose (UA) Urine Ketones Urine Occult Blood Urine Nitrate Urine Bilirubin Urine Urobilinogen Ur Leukocyte Esterase Urine RBC Urine WBC Ur Squamous Epith Cells Urine Bacteria Ur Culture Indicated? SARS-CoV-2 (PCR) 04/26/22 04/26/22 04/26/22 10:25 10:30 11:15 WBC RBC Hgb Hct MCV MCH MCHC RDW Plt Count Neut % (Auto) Lymph % (Auto) [place] % (Auto) Eos % (Auto) Baso % (Auto) Neut # (Auto) Lymph # (Auto) [place] # (Auto) Eos # (Auto) Baso # (Auto) ESR Sodium Potassium Chloride Carbon Dioxide BUN Creatinine Estimated GFR BUN/Creatinine Ratio Glucose Calcium Magnesium Total Bilirubin AST ALT Alkaline Phosphatase C-Reactive Protein < 0.5 Total Protein Albumin Globulin Albumin/Globulin Ratio Lipase Urine Color Yellow Urine Appearance Clear Urine pH 5.5 Ur Specific [place] 1.020 Urine Protein Negative Urine Glucose (UA) Negative Urine Ketones Trace H Urine Occult Blood Negative Urine Nitrate Negative Urine Bilirubin Negative Urine Urobilinogen 0.2 Ur Leukocyte Esterase Negative Urine RBC 0-1/hpf Urine WBC 0-1/hpf Ur Squamous Epith Cells 0-1 /hpf Urine Bacteria Occasional (0-1) Ur Culture Indicated? Cult not indicated SARS-CoV-2 (PCR) Negative 04/27/22 04/27/22 04:25 04:25 WBC 5.5 D RBC 3.96 L Hgb 12.3 Hct 35.6 L MCV 89.9 MCH 31.0 MCHC 34.5 RDW 12.7 Plt Count 243 Neut % (Auto) 66.5 Lymph % (Auto) 24.3 L [place] % (Auto) 5.7 Eos % (Auto) 2.0 Baso % (Auto) 1.5 Neut # (Auto) 3600 Lymph # (Auto) 1300 [place] # (Auto) 300 Eos # (Auto) 100 Baso # (Auto) 100 ESR Sodium 138 Potassium 3.7 Chloride 110 H Carbon Dioxide 26 BUN 9 Creatinine 0.48 L Estimated GFR > 60 BUN/Creatinine Ratio 18.8 Glucose 83 Calcium 7.9 L Magnesium 1.9 Total Bilirubin AST ALT Alkaline Phosphatase C-Reactive Protein Total Protein Albumin Globulin Albumin/Globulin Ratio Lipase Urine Color Urine Appearance Urine pH Ur Specific [place] Urine Protein Urine Glucose (UA) Urine Ketones Urine Occult Blood Urine Nitrate Urine Bilirubin Urine Urobilinogen Ur Leukocyte Esterase Urine RBC Urine WBC Ur Squamous Epith Cells Urine Bacteria Ur Culture Indicated? SARS-CoV-2 (PCR) [facility] Medical History Bilateral foot pain Cervical somatic dysfunction Chronic neck pain Chronic thoracic back pain Cranial somatic dysfunction Family history of breast cancer in first degree relative Head injury History of left heart catheterization Hx of radioactive iodine thyroid ablation Hypothyroidism (acquired) Neck stiffness Segmental and somatic dysfunction of rib cage Shoulder pain Skin rash Somatic dysfunction of lower extremity Thoracic region somatic dysfunction Thyroid nodule Vaginal dryness, menopausal Well woman exam with routine gynecological exam Surgical History H/O tubal ligation Family History Father Stroke Mother Stroke Social History household members: spouse Tobacco & Substance Use Smoking Status: Never smoker alcohol intake: never substance use type: does not use Assessment & Plan Assessment & Plan narrative: Recurrent SBO, likely adhesive disease. No ischemic symptoms. Already signs of resolution. Plan: Agree with clear liquid diet. Advance diet as tolerated with possible discharge this evening if progressing. Time Spent With Patient Time with patient: 30 to 49 minutes with 50% spent counseling/coordinating care Critical Care time: I spent a total of [] minutes of critical care time on this patient's care today; this time is exclusive of procedural time.
--- NOTE | 2022-04-27 10:09 | CM.DANOTE ---
Patient is a 57 yo female who was admitted on 04/26/22 for SBO. Pt has [employer] for insurance and her PCP is Dr. Lise Hutchins at [facility]. EMR was reviewed. Per MD, pt with a hx of SBO and admitted for SBO and no NGT at this time. Per Surgeon Consult, plan to treat conservatively and no surgery needed at this time and will attempt to advance to clear liquids to see how pt tolerates. SW met bedside with pt and spouse and explained role and they confirm that they live in [place] at home, both quite active and independent at baseline and no hx of SNF or HH. Pt states spouse is informally her DPOA but no official pwk completed yet. Pt confirms that she works at baseline and has a hx of SBO that only needed conservative tx at that time also. They are hopeful to d/c home this evening if pt can tolerate advancing diet and do not anticipate any needs at this time. Plan: SW to follow closely for starting pt's on clears and then slowly advancing diet to see if pt can tolerate towards plan of home with spouse and any further identified discharge planning needs. SONNY Beltran Discharge Planning/Care Management CM Discharge Assessment Start: 04/27/22 09:41 Freq: Status: Active Protocol: Document 04/27/22 09:41 BF (Rec: 04/27/22 09:42 [id number]) Discharge Planning Assessment Assigned Geoscience Laboratory Technician SONNY Álvarez DPOA/Assigned Designee Name spouse Red Contact Information [phone] Advance Directives? No Advance Directives on File No History Provided By Patient,Significant Other, Medical Record Has Patient been admitted in last 30 No days? Prior Living Arrangements House Household Members spouse Type of transporation used prior to Drives own vehicle admit Independent with ADL's Yes Is patient alert and oriented? Yes Caregiver for Another No Barriers to Discharge No Discharge Plan Home Transportation Arrangement spouse likely to transport Referrals Initiated None needed Additional Comment Pending Surgeon COnsult Whiteboard Updated in Patient Room with Yes name and ext. # of Geoscience Laboratory Technician Review Status In Process Please Provide Date Initial DC 04/27/22 Assessment Was Performed Next Review Type Continued Stay Review
--- NOTE | 2022-04-27 12:31 | P.PN_ITS ---
Subjective Subjective Interval history: 57 F admitted with SBO likely due to adhesions. Slight improvement with a bdominal pain this morning, advanced to clears but pain lingering. No nausea or vomiting, passing gas, feels like she has to have a bowel movement this afternoon. Exam Vital Signs (past 8 hours): - 04/27/22 04:41 04/27/22 08:44 Temperature 97.9 F 98.3 F Pulse Rate 47 L 52 L Respiratory Rate 18 16 Blood Pressure 132/54 L 138/69 Pulse Oximetry 98 100 Oxygen Flow Rate 0 0 Oxygen Delivery Method Room Air Oxygen Flow Rate 0 Narrative Exam Narrative: General:? Patient is well developed and well nourished, in no distress at this time. HEENT:? Normocephalic, atraumatic, extraocular muscles intact, oral pharynx is clear and mucous membranes are moist. Neck: supple and symmetric, trachea is midline, no cervical adenopathy. Negative for JVD Chest:? Normal AP diameter and contour without kyphoscoliosis, no tachypnea, equal chest rise bilaterally. Lungs:? CTA b/l no wheezing rhonchi or rales. Cardio:?RRR no m/r/g. Abdomen: soft non-distended, diffuse mild tenderness (not localized to any particular quadrant). Musculoskeletal:? Muscle strength and tone are equal within normal limits, no deformity. Extremities: No edema or joint effusions. No cyanosis or clubbing. Skin:? Pale,? Warm to touch,dry and intact without rashes, ulcerations or petechiae.? Neuro:? Alert and orientated x3,? sensation to touch intact in all extremities, no gross deficits noted of cranial nerves. Psych:? Patient has a well-kept appearance, appropriate affect, mental status attitude thought context and judgment are appropriate for age. Objective Labs 04/27/22 04:25 04/27/22 04:25 Labs: Laboratory Results - last 24 hr 04/26/22 04/26/22 04/26/22 10:25 10:25 11:15 WBC RBC Hgb Hct MCV MCH MCHC RDW Plt Count Neut % (Auto) Lymph % (Auto) [place] % (Auto) Eos % (Auto) Baso % (Auto) Neut # (Auto) Lymph # (Auto) [place] # (Auto) Eos # (Auto) Baso # (Auto) ESR 6 Sodium Potassium Chloride Carbon Dioxide BUN Creatinine Estimated GFR BUN/Creatinine Ratio Glucose Calcium Magnesium C-Reactive Protein < 0.5 Urine RBC 0-1/hpf Urine WBC 0-1/hpf Ur Squamous Epith Cells 0-1 /hpf Urine Bacteria Occasional (0-1) Ur Culture Indicated? Cult not indicated 04/27/22 04/27/22 04:25 04:25 WBC 5.5 D RBC 3.96 L Hgb 12.3 Hct 35.6 L MCV 89.9 MCH 31.0 MCHC 34.5 RDW 12.7 Plt Count 243 Neut % (Auto) 66.5 Lymph % (Auto) 24.3 L [place] % (Auto) 5.7 Eos % (Auto) 2.0 Baso % (Auto) 1.5 Neut # (Auto) 3600 Lymph # (Auto) 1300 [place] # (Auto) 300 Eos # (Auto) 100 Baso # (Auto) 100 ESR Sodium 138 Potassium 3.7 Chloride 110 H Carbon Dioxide 26 BUN 9 Creatinine 0.48 L Estimated GFR > 60 BUN/Creatinine Ratio 18.8 Glucose 83 Calcium 7.9 L Magnesium 1.9 C-Reactive Protein Urine RBC Urine WBC Ur Squamous Epith Cells Urine Bacteria Ur Culture Indicated? [facility] Medical History Bilateral foot pain Cervical somatic dysfunction Chronic neck pain Chronic thoracic back pain Cranial somatic dysfunction Family history of breast cancer in first degree relative Head injury History of left heart catheterization Hx of radioactive iodine thyroid ablation Hypothyroidism (acquired) Neck stiffness Segmental and somatic dysfunction of rib cage Shoulder pain Skin rash Somatic dysfunction of lower extremity Thoracic region somatic dysfunction Thyroid nodule Vaginal dryness, menopausal Well woman exam with routine gynecological exam Surgical History H/O tubal ligation Family History Father Stroke Mother Stroke Social History household members: spouse Smoking Status: Never smoker alcohol intake: never substance use type: does not use Assessment & Plan Assessment & Plan narrative: 1. 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 - CRP and ESR low, mild leukocytosis but suspect reactive. Does have history of tubal ligation. - General surgery consultation appreciated, advanced to clears this AM. - back to NPO if emesis, or advance diet if tolerating clears. If tolerating clears stop IV fluids. - symptom relief with pain medication and anti nausea medications prn. 2. HTN - will reorder home medications. 3. history of takotsubo's cardiomyopathy - no current symptoms, will check EKG for baseline study but no chest pain. - no indication for echo currently - history of LV thrombus previously on AC, no longer on this medciation - will resume home medications. - tele for 24 hours given history of cardiomyopathy, will discontinue without arrythmias noted today. 4. Hypothyroidism - resume home levothyroxine. Code: Full, surrogate is beka Dispo: probable discharge tomorrow if tolerating a diet. Covid: Negative Time Spent With Patient Critical Care time: I spent a total of [] minutes of critical care time on this patient's care today; this time is exclusive of procedural time. Quality VTE Deep Vein Thrombosis/Pulmonary Embolism Present on Admission: No
[2022-04-27 12:38] VITALS: BP 140/68; PULSE 53; RESP 16; TEMP 36.4; O2SAT 100
[2022-04-27 15:59] VITALS: BP 133/59; PULSE 62; RESP 16; TEMP 36.3; O2SAT 100
[2022-04-27 20:00] VITALS: BP 127/59; PULSE 65; RESP 19; TEMP 36.4; O2SAT 96; O2SAT 98
[2022-04-28] VITALS: BP 117/59; PULSE 49; RESP 19; TEMP 36.5; O2SAT 98
[2022-04-28 04:00] VITALS: O2SAT 96
[2022-04-28 04:12] VITALS: BP 134/75; PULSE 60; RESP 19; TEMP 36.6; O2SAT 99
[2022-04-28] MEDS: ACETAMINOPHEN 325 MG TABLET 650 MG PO (04:46)
[2022-04-28 05:52] LABS: Add Manual Diff / Slide Review NO; Basophils Absolute Auto 0 /uL (0-100); Basophils Percent Auto 0.4 % (0-2); Eosinophils Absolute Auto 100 /uL (0-450); Eosinophils Percent Auto 2.5 % (2-4); Hematocrit 36.3 % (36-46); Hemoglobin 12.7 g/dL (12.0-16.0); Lymphocytes Absolute Auto 1700 /uL (1100-4500); Lymphocytes Percent Auto 32.9 % (25-40); Mean Corpuscular HGB Conc 34.9 % (30-36); Mean Corpuscular Hemoglobin 31.2 PG (26-34); Mean Corpuscular Volume 89.5 fL (80-100); Monocytes Absolute Auto 400 /uL (0-900); Monocytes Percent Auto 7.6 % (3-14); Neutrophils Absolute Auto 3000 /uL (1500-7000); Neutrophils Percent Auto 56.6 % (50-75); Platelet Count 249 X10^3/uL (150-400); Red Blood Cell Count 4.05 X10^6/uL (4.0-5.2); Red Cell Distribution Width 12.8 % (11.6-14.8); White Blood Cell Count 5.3 X10^3/uL (4.5-11.0)
[2022-04-28] MEDS: LEVOTHYROXINE 75 MCG TABLET PO (06:09)
[2022-04-28 06:19] LABS: Blood Urea Nitrogen 8 mg/dL (7-17); Carbon Dioxide 28 mmol/L (22-32); Chloride 108 mmol/L (98-107); Estimated Glomerular Filt Rate > 60 mL/min (>60); Glucose 85 mg/dL (70-100); HEMOLYSIS < 15 (0-50); Magnesium 1.9 mg/dL (1.6-2.3); Potassium 3.5 mmol/L (3.4-5.1); Sodium 140 mmol/L (137-145)
[2022-04-28 07:55] VITALS: BP 138/66; PULSE 53; RESP 15; TEMP 36.5; O2SAT 100
[2022-04-28 08:00] VITALS: O2SAT 100
[2022-04-28 08:20] VITALS: BP 138/66; PULSE 53
[2022-04-28] MEDS: lisinopriL 20 MG TABLET PO (08:20)
--- NOTE | 2022-04-28 09:40 | PM.DS.1 ---
History of Present Illness History of Present Illness Date Patient Seen: 04/28/22 Time Patient Seen: 08:00 Chief complaint: lower abd pain Narrative: 57 year old female with PMH of takotsubo's cardiomyopathy (2020), hypothyroidism, prior SBO, who presents with one day abdominal pain. Pain started very early this morning, she denies any nausea. Pain is diffuse, feels like a distension. There is no radiation. She did have a normal bowel movement this morning. She had two prior SBOs in the past, and initially stated she did not have any previous abdominal surgeries but later endorsed tubal ligation to this provider. She denies fever, chills, chest pain, shortness of breath, dysuria, urinary frequency, hematuria, melena or hematochezia. In the ER, CT scan showed an SBO with transition point in the RLQ. Vital signs were notable for mild hypertension. Labs notable for a mild leukocytosis with WBC 12.2, but the remainder or her labs were unremarkable including chemistries. UA was not indicative for infection. [facility]'s sanitation equipement is currently not functional, general surgery was contacted by the emergency room physician who stated there would be no issues should patient require surgery, and okay for admission here. She was admitted for further management. NG tube placement was unsuccessful in the ER, given lack of vomiting repeat attempts were not made at this time. No EKG was performed, this has been ordered. Discharge Providers Provider Date of admission: 04/26/22 13:14 Discharge Date: 04/28/22 Primary care physician: Lise Hutchins MD Consults: 04/26/22 12:11 Consult to General Surgery Stat Comment: Consulting Provider: Lala Recinos Reason for consultation: SBO Discharge provider: Shiraz Vernon DO Summary Hospital Course Discharge Diagnosis: 1. 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 2. HTN 3. history of takotsubo's cardiomyopathy ? 4. Hypothyroidism 5. GERD Hospital Course: This is a 57 year old female with PMH of HTN, takotsubo's cardiomyopathy, and hypothyroidism admitted with a small bowel obstruction. NG tube was difficult to place in the emergency room, but was not needed given lack of nausea or vomiting. She did start to pass flatus and her diet was advanced to clears. With clears she had some residual abdominal pain, but then had a small bowel movement. On HD#2 patient tolerated a regular diet with no symptoms and was discharged home. Surgery was consulted but no surgical management was necessary for her bowel obstruction. She did complain of epigastric burning and was started on a PPI trial at the time of discharge. PCP follow up is recommended to check on her GERD symptoms after 2 week PPI trial. Exam Vital Signs (past 8 hours): - 04/28/22 04:12 04/28/22 04:00 04/28/22 07:55 Temperature 97.8 F 97.7 F Pulse Rate 60 53 L Respiratory Rate 19 15 Blood Pressure 134/75 138/66 Pulse Oximetry 99 96 100 Oxygen Delivery Method Room Air Oxygen Flow Rate 0 0 0 04/28/22 08:00 04/28/22 08:20 Temperature Pulse Rate 53 L Respiratory Rate Blood Pressure 138/66 Pulse Oximetry 100 Oxygen Delivery Method Room Air Oxygen Flow Rate 0 Oxygen Delivery Method Room Air Oxygen Flow Rate 0 Narrative Exam Narrative: General:? Patient is well developed and well nourished, in no distress at this time. HEENT:? Normocephalic, atraumatic, extraocular muscles intact, oral pharynx is clear and mucous membranes are moist. Neck: supple and symmetric, trachea is midline, no cervical adenopathy. Negative for JVD Chest:? Normal AP diameter and contour without kyphoscoliosis, no tachypnea, equal chest rise bilaterally. Lungs:? CTA b/l no wheezing rhonchi or rales. Cardio:?RRR no m/r/g. Abdomen: soft non-distended, diffuse mild tenderness (not localized to any particular quadrant). Musculoskeletal:? Muscle strength and tone are equal within normal limits, no deformity. Extremities: No edema or joint effusions. No cyanosis or clubbing. Skin:? Pale,? Warm to touch,dry and intact without rashes, ulcerations or petechiae.? Neuro:? Alert and orientated x3,? sensation to touch intact in all extremities, no gross deficits noted of cranial nerves. Psych:? Patient has a well-kept appearance, appropriate affect, mental status attitude thought context and judgment are appropriate for age. Objective Labs 04/28/22 04:42 04/28/22 04:42 Labs: Laboratory Results - last 24 hr 04/28/22 04/28/22 04:42 04:42 WBC 5.3 RBC 4.05 Hgb 12.7 Hct 36.3 MCV 89.5 MCH 31.2 MCHC 34.9 RDW 12.8 Plt Count 249 Neut % (Auto) 56.6 Lymph % (Auto) 32.9 [place] % (Auto) 7.6 Eos % (Auto) 2.5 Baso % (Auto) 0.4 Neut # (Auto) 3000 Lymph # (Auto) 1700 [place] # (Auto) 400 Eos # (Auto) 100 Baso # (Auto) 0 Sodium 140 Potassium 3.5 Chloride 108 H Carbon Dioxide 28 BUN 8 Creatinine 0.47 L Estimated GFR > 60 BUN/Creatinine Ratio 17.0 Glucose 85 Calcium 8.0 L Magnesium 1.9 PFSH Medical History Bilateral foot pain Cervical somatic dysfunction Chronic neck pain Chronic thoracic back pain Cranial somatic dysfunction Family history of breast cancer in first degree relative Head injury History of left heart catheterization Hx of radioactive iodine thyroid ablation Hypothyroidism (acquired) Neck stiffness Segmental and somatic dysfunction of rib cage Shoulder pain Skin rash Somatic dysfunction of lower extremity Thoracic region somatic dysfunction Thyroid nodule Vaginal dryness, menopausal Well woman exam with routine gynecological exam Surgical History H/O tubal ligation Family History Father Stroke Mother Stroke Social History household members: spouse Smoking Status: Never smoker alcohol intake: never substance use type: does not use Discharge Plan Discharge Plan Patient Disposition: Home Provider Discharge Comment: You were admitted to the hospital with small bowel obstruction due to adhesions. This improved with time and resolved on its own. Pantoprazole prescribed for heart burn type symptoms. Please follow up with PCP if symptoms return or persist after 2 week trial. Discharge orders & Medications Prescriptions: New pantoprazole 20 mg tablet,delayed release (DR/EC) 20 mg PO DAILY 14 Days Qty: 14 0RF Continued levothyroxine [Synthroid] 75 mcg tablet 75 mcg PO DAILY Qty: 90 1RF lisinopril 20 mg tablet 20 mg PO DAILY Patient Comments: TAKE ONE TABLET BY MOUTH ONE TIME DAILY Follow up/Referrals: Lise Hutchins MD [Primary Care Provider] - Diet/Activity/Treatments Diet: Diet as Tolerated Activity: As tolerated Visit Report/Discharge Packet Instructions: Small Bowel Obstruction, Pantoprazole Stand Alone Forms: Patient Portal/API, Stroke Signs & Symptoms Discharge Data Primary Care Provider: Lise Hutchins Attending Provider: Shiraz Vernon VTE Deep Vein Thrombosis/Pulmonary Embolism Present on Admission: No
[2022-04-28] MEDS: POTASSIUM CHLORIDE 20 MEQ TAB 40 MEQ PO (11:11)
--- NOTE | 2022-04-28 12:31 | PC.NURSE ---
Pt dressing independently, IV d/c'd and reviewed paperwork and d/c teaching about new medication, s/s of SOB and how to prevent, and f/u with PCP. Stroke education done. Pt and spouse had no futher questions/concerns at this time. Paperwork signed. Pt stayed for lunch and was escorted off unit @ 1221 with all belongings to [facility].
--- NOTE | 2022-04-28 12:32 | CM.DPC ---
DCP Discharge Home Per MD, pt was able to tolerate advancing diet and general diet ordered this morning and pt had bm and medically stable to d/c home today. Spouse bedside and provided transport home. Plan: Patient to d/c home today via spouse POV and no further SW needs at this time. SONNY Beltran
== END 2022-04-28 12:21 | disposition home or self-care (01) ==
LOC: ED 10:16 → AC 13:16
PROVIDERS: Admitting Provider Internal Medicine; Emergency Provider Family Medicine Addiction Medicine; PCP Internal Medicine; Referring Provider Family Medicine Addiction Medicine; Visit Provider Internal Medicine
DX: K56.609 Unspecified intestinal obstruction, unspecified as to partial versus complete obstruction (principal); I10 Essential (primary) hypertension; Z86.79 Personal history of other diseases of the circulatory system; Z20.822 Contact with and (suspected) exposure to COVID-19
CPT/HCPCS: 36415; 74177; 80048; 80053; 81001; 83690; 83735; 85025; 85651; 86140; 87635; 93005; 93010; 96361; 96374; 96375; 96376; 99232; 99284; C9803; G0378; J1885; J2405

== ENCOUNTER → 2023-07-03 09:58 | Outpatient (CLI) | payer OTHER, SELFPAY ==
[2022-04-26 13:19] VITALS: BMI 22.8
[2023-07-03 10:43] LABS: Influenza A - CEPHEID Flu A NEGATIVE (NEGATIVE); Influenza B - CEPHEID Flu B NEGATIVE (NEGATIVE); Respiratory Syncytial Virus Negative (Negative)
[2023-07-03 10:45] LABS: COVID-19 CEPHEID 4-PLEX PCR Negative (Negative)
== END ==
PROVIDERS: PCP Internal Medicine; Visit Provider Registered Nurse
DX: R05.1 Acute cough (principal)
CPT/HCPCS: 0241U

== ENCOUNTER → 2023-08-27 15:27 | Outpatient (CLI) | payer OTHER, SELFPAY ==
[2022-04-26 13:19] VITALS: BMI 22.8
--- NOTE | 2023-08-27 15:28 | DI.MG.S_ITS ---
BILATERAL DIGITAL SCREENING MAMMOGRAM 3D/2D WITH CAD: 08/27/2023 CLINICAL: Routine screening. Comparison is made to exams dated: 06/11/2021 mammogram - [facility], 01/14/2017 mammogram, and 10/04/2015 mammogram - outside location. Both breasts are heterogeneously dense, which may obscure small masses (category c / 51-75% glandular tissue). Current study was also evaluated with a Computer Aided Detection (CAD) system. No significant masses, calcifications, or other findings are seen in either breast. There has been no significant interval change. IMPRESSION: NEGATIVE There is no mammographic evidence of malignancy. A 1 year screening mammogram is recommended. Based on the Tyrer Cuzick model (a risk assessment model) the patient's lifetime risk is 7.4% and her 10 year risk is 2.9%. According to the ACR, ACS, and NCCN guidelines, an annual breast MRI exam along with mammogram is recommended if the patient's lifetime risk is 20% or greater. This exam was interpreted at Station ID: [id number]. NOTE: For mammograms, a report in lay terms will be sent to the patient. Approximately 15% of breast malignancies will not be visualized mammographically. In the management of a palpable breast mass, a negative mammogram must not discourage biopsy of a clinically suspicious lesion. Electronically Signed By: Bryant swartz/[email or web address]:08/27/2023 18:15:08 letter sent: Normal Exam ACR BI-RADS Category 1: Negative [id number]
== END ==
PROVIDERS: PCP Internal Medicine; Referring Provider Internal Medicine; Visit Provider Internal Medicine
DX: Z12.31 Encounter for screening mammogram for malignant neoplasm of breast (principal); R92.333 Mammographic heterogeneous density, bilateral breasts
CPT/HCPCS: 77063; 77067

== ENCOUNTER 2023-11-09 08:34 | Emergency (ER) | payer OTHER, SELFPAY ==
[2022-04-26 13:19] VITALS: BMI 22.8
[2023-11-09] VITALS (10 sets, daily range): BP systolic 148–196; BP diastolic 70–97; PULSE 59–77; RESP 18–29; TEMP 37.1; O2SAT 94–100; BMI 21.4
--- NOTE | 2023-11-09 08:43 | ED_ITS ---
HPI - Back Pain/Injury General Chief Complaint: Back Pain/Injury Stated Complaint: Lower back pain Time Seen by Provider: 11/09/23 08:42 History of Present Illness HPI Narrative: Past medical history of hypertension hypothyroidism low back pain comes into the ED for evaluation of right-sided back pain/flank pain. States it has been ongoing since Wednesday11/07/2023. States that this is a little hoarse than her normal low back pain, has seen orthopedic surgeon in the past states that she has had injections in the past, this is ?several years ago. She denies any numbness weakness tingling down bilateral lower extremity denies any bowel or urinary incontinence or retention denies any saddle paresthesias. She does state movement does make it worse, denies any other GI/ symptoms at this time. Related Data Home Medications Medication Instructions Recorded Confirmed lisinopril 20 mg tablet 20 mg PO DAILY 04/26/22 07/03/23 Previous Rx's Medication Instructions Recorded levothyroxine 75 mcg tablet 75 mcg PO DAILY #90 tabs 02/20/20 (Synthroid) Allergies Allergy/AdvReac Type Severity Reaction Status Date / Time bacitracin AdvReac Intermediate Rash Verified 07/03/23 09:49 Review of Systems Review of Systems Narrative: HEENT: Denies headache, eye drainage, eye irritation, head trauma, sore throat, voice change Cardiovascular: Denies any chest pain, palpitations, shortness of breath, tachycardia Respiratory: Denies any shortness of breath, cough, wheeze, stridor GI/: Denies any abdominal pain, nausea, vomiting, diarrhea, bright red blood per rectum, melanotic stools, urinary frequency, urinary retention, dysuria, hematuria MSK: Right-sided back pain/flank pain Skin: Denies any rashes, lesions, discoloration Neuro: Denies any headache, lightheadedness, dizziness, fainting, weakness Psych: Denies SI/HI Patient History Medical History History of left heart catheterization Head injury Chronic thoracic back pain Chronic neck pain Somatic dysfunction of lower extremity Segmental and somatic dysfunction of rib cage Thoracic region somatic dysfunction Cranial somatic dysfunction Bilateral foot pain Vaginal dryness, menopausal Well woman exam with routine gynecological exam Family history of breast cancer in first degree relative Hypothyroidism (acquired) Hx of radioactive iodine thyroid ablation Cervical somatic dysfunction Neck stiffness Skin rash Shoulder pain Thyroid nodule Surgical History H/O tubal ligation Family History Father Stroke Mother Stroke Social History household members: spouse Smoking Status: Never smoker alcohol intake: never substance use type: does not use Smoking Status: Never smoker Substance Use Type: does not use Exam Narrative Exam Narrative: General: Cooperative, comfortable, well-developed, not in acute distress HEENT: Normocephalic, atraumatic, PERRLA, normal sclera, eyelids normal, Neck: Active full range of motion, atraumatic Chest: Normal to inspection, negative crepitus, no overlying erythema ecchymosis Respiratory: Normal respiratory effort, not in acute respiratory distress, clear to auscultation bilaterally negative cough, wheeze, tachypnea, rhonchi, rales Cardiology: Regular rate rhythm negative gallop, murmur, rubs GI/: Normal to inspection, soft, nonrigid, no tenderness to palpation, exam deferred MSK: Full range of active range of motion of all 4 extremities, atraumatic Skin: No rashes lesions noted Neuro: Alert awake oriented x3, moves all 4 extremities spontaneously, cranial nerves intact, able to answer all questions appropriately follows commands appropriately Psych: Cooperative, negative suicidal or homicidal ideations Initial Vital Signs Initial Vital Signs: Vital Signs Pulse Oximetry 94 11/09/23 08:39 Course Orders Ordered: ED Orders 11/09/23 08:48 CT abdomen pelvis wo con Stat 11/09/23 09:33 BMP [Basic Metabolic Panel] Stat Complete Blood Count AUTO DIFF Stat Discontinued Medications Sodium Chloride (Normal Saline 0.9%) 1,000 mls @ 1,000 mls/hr IV BOLUS ONE Stop: 11/09/23 09:46 Last Infusion: 11/09/23 11:17 Dose: Infused Documented By: Admin: 11/09/23 10:02 Dose: 1,000 mls/hr Documented By: RB Ketorolac Tromethamine (Ketorolac 30 Mg/Ml Vial) 15 mg IM NOW ONE Stop: 11/09/23 08:49 Last Admin: 11/09/23 10:01 Dose: 15 mg Documented By: RB Vital Signs Vital signs: Vital Signs - 8 hr 11/09/23 08:39 11/09/23 08:40 11/09/23 08:40 Temperature Pulse Rate 70 Respiratory Rate Blood Pressure 196/92 H Pulse Oximetry 94 100 Oxygen Delivery Method 11/09/23 08:42 11/09/23 09:00 11/09/23 09:01 Temperature 98.7 F Pulse Rate 68 64 64 Respiratory Rate 18 Blood Pressure 196/97 H Pulse Oximetry 100 100 99 Oxygen Delivery Method Room Air 11/09/23 09:01 11/09/23 09:30 11/09/23 10:05 Temperature Pulse Rate 67 77 Respiratory Rate 29 H Blood Pressure 157/70 H Pulse Oximetry 100 94 Oxygen Delivery Method 11/09/23 11:00 11/09/23 11:24 11/09/23 11:24 Temperature Pulse Rate 60 63 Respiratory Rate 20 24 Blood Pressure 166/81 H Pulse Oximetry 100 100 Oxygen Delivery Method MDM - Back Pain/Injury Lab Data 11/09/23 09:33 11/09/23 09:33 Labs: Lab Results 11/09/23 Range/Units 09:33 WBC 8.7 (4.5-11.0) X10^3/uL RBC 4.70 (4.0-5.2) X10^6/uL Hgb 14.8 (12.0-16.0) g/dL Hct 42.3 (36-46) % MCV 89.9 (80-100) fL MCH 31.5 (26-34) PG MCHC 35.0 (30-36) % RDW 13.3 (11.6-14.8) % Plt Count 316 (150-400) X10^3/uL Neut % (Auto) 64.6 (50-75) % Lymph % (Auto) 29.3 (25-40) % [place] % (Auto) 5.1 (3-14) % Eos % (Auto) 0.4 L (2-4) % Baso % (Auto) 0.6 (0-2) % Neut # (Auto) 5700 (9369-9323) /uL Lymph # (Auto) 2600 (1150-9295) /uL [place] # (Auto) 400 (0-900) /uL Eos # (Auto) 0 (0-450) /uL Baso # (Auto) 100 (0-100) /uL Sodium 143 (137-145) mmol/L Potassium 4.6 (3.4-5.1) mmol/L Chloride 106 (98-107) mmol/L Carbon Dioxide 26 (22-32) mmol/L BUN 9 (7-17) mg/dL Creatinine 0.51 L (0.52-1.04) mg/dL Estimated GFR > 60 (>60) mL/min BUN/Creatinine Ratio 17.6 (6-22) Glucose 97 (70-100) mg/dL Calcium 9.6 (8.4-10.2) mg/dL Urine Dip Bedside Urine Glucose Negative Bedside Urine Bilirubin - Negative Bedside Urine Ketone - Negative Urine Specific [place] 1.005 Bedside Urine Occult Blood - Negative Bedside Urine pH 8.0 Bedside Urine Protein - Negative Bedside Urine Urobilinogen - Negative Bedside Urine Nitrite - Negative Bedside Urine Leukocytes - Negative Esterase Imaging Data CT scan - abdomen/pelvis: Radiologist's Impression: PROCEDURE: CT ABDOMEN PELVIS WO CON INDICATIONS: right sided flank pain TECHNIQUE: Axial sections were acquired from the lung bases to the pubic symphysis. Coronal and sagittal reformats were performed. For radiation dose reduction, the following was used: automated exposure control, adjustment of mA and/or kV according to patient size. COMPARISON: [facility], CT, CT ABDOMEN PELVIS W CON, 04/26/2022, 10:28. FINDINGS: Image quality: Diagnostic. Lower Chest: No significant findings. URINARY: Right Kidney: No stones or hydronephrosis. Right Ureter: No hydroureter. Left Kidney: No stones or hydronephrosis. Left Ureter: No hydroureter. Bladder: Normal wall thickness. No stones. ABDOMEN: Liver: No contour-deforming solid mass. Gallbladder: No radiopaque gallstones or wall thickening. Biliary ducts: No biliary dilation. Pancreas: No ductal dilation. Spleen: Size is within normal limits. Adrenal Glands: No adrenal nodules. Stomach and Bowel: Normal colonic caliber, without significant wall thickening. The appendix is normal. Peritoneum: No abnormal intraperitoneal fluid. No free air. Ventral Wall: No hernia. Abdominal Nodes: No enlarged retroperitoneal or mesenteric lymph nodes. Vessels: Aorta and inferior vena cava are normal in size. PELVIS: Pelvic Organs: Unremarkable. Pelvic Nodes: Unremarkable. Miscellaneous: No inguinal hernias are seen. Bones: Unremarkable. IMPRESSION: No obstructing stones or hydronephrosis. Normal appendix. MDM Narrative Medical decision making narrative: Patient is a 58-year-old female history of low back pain hypertension hypothyroidism presenting for right low back/flank pain for the past few days. No red flags for cauda equina, CT scan without any signs urolithiasis nephrolithiasis pyelonephritis, patient without any GI/ symptoms urinalysis not consistent with acute urinary tract infection symptoms more likely secondary to muscle strain spasm, patient will be treated with analgesics at home with outpatient PCP orthopedic surgery. Patient safe for discharge home with outpatient follow up Discharge Plan Departure Patient Disposition: Home Clinical Impression: Low back pain Prescriptions: No Action levothyroxine [Synthroid] 75 mcg tablet 75 mcg PO DAILY Qty: 90 1RF lisinopril 20 mg tablet 20 mg PO DAILY Patient Comments: TAKE ONE TABLET BY MOUTH ONE TIME DAILY Referrals: Lise Hutchins MD [Primary Care Provider] - Stand Alone Forms: Patient Portal/API
--- NOTE | 2023-11-09 08:48 | DI.CT.S_ITS ---
PROCEDURE: CT ABDOMEN PELVIS WO CON INDICATIONS: right sided flank pain TECHNIQUE: Axial sections were acquired from the lung bases to the pubic symphysis. Coronal and sagittal reformats were performed. For radiation dose reduction, the following was used: automated exposure control, adjustment of mA and/or kV according to patient size. COMPARISON: [facility], CT, CT ABDOMEN PELVIS W CON, 04/26/2022, 10:28. FINDINGS: Image quality: Diagnostic. Lower Chest: No significant findings. URINARY: Right Kidney: No stones or hydronephrosis. Right Ureter: No hydroureter. Left Kidney: No stones or hydronephrosis. Left Ureter: No hydroureter. Bladder: Normal wall thickness. No stones. ABDOMEN: Liver: No contour-deforming solid mass. Gallbladder: No radiopaque gallstones or wall thickening. Biliary ducts: No biliary dilation. Pancreas: No ductal dilation. Spleen: Size is within normal limits. Adrenal Glands: No adrenal nodules. Stomach and Bowel: Normal colonic caliber, without significant wall thickening. The appendix is normal. Peritoneum: No abnormal intraperitoneal fluid. No free air. Ventral Wall: No hernia. Abdominal Nodes: No enlarged retroperitoneal or mesenteric lymph nodes. Vessels: Aorta and inferior vena cava are normal in size. PELVIS: Pelvic Organs: Unremarkable. Pelvic Nodes: Unremarkable. Miscellaneous: No inguinal hernias are seen. Bones: Unremarkable. IMPRESSION: No obstructing stones or hydronephrosis. Normal appendix. Dictated by: Arti Hobson MD, PhD on 11/09/2023 at 10:48 Approved by: Arti Hobson MD, PhD on 11/09/2023 at 10:51
[2023-11-09 09:44] LABS: Add Manual Diff / Slide Review NO; Basophils Absolute Auto 100 /uL (0-100); Basophils Percent Auto 0.6 % (0-2); Eosinophils Absolute Auto 0 /uL (0-450); Eosinophils Percent Auto 0.4 % (2-4); Hematocrit 42.3 % (36-46); Hemoglobin 14.8 g/dL (12.0-16.0); Lymphocytes Absolute Auto 2600 /uL (1100-4500); Lymphocytes Percent Auto 29.3 % (25-40); Mean Corpuscular Hemoglobin 31.5 PG (26-34); Mean Corpuscular Volume 89.9 fL (80-100); Monocytes Absolute Auto 400 /uL (0-900); Monocytes Percent Auto 5.1 % (3-14); Neutrophils Absolute Auto 5700 /uL (1500-7000); Neutrophils Percent Auto 64.6 % (50-75); Platelet Count 316 X10^3/uL (150-400); Red Cell Distribution Width 13.3 % (11.6-14.8); White Blood Cell Count 8.7 X10^3/uL (4.5-11.0)
[2023-11-09 09:56] LABS: BUN Creatinine Ratio 17.6 (6-22); Blood Urea Nitrogen 9 mg/dL (7-17); Calcium 9.6 mg/dL (8.4-10.2); Carbon Dioxide 26 mmol/L (22-32); Chloride 106 mmol/L (98-107); Estimated Glomerular Filt Rate > 60 mL/min (>60); Glucose 97 mg/dL (70-100); HEMOLYSIS < 15 (0-50); Potassium 4.6 mmol/L (3.4-5.1); Sodium 143 mmol/L (137-145)
[2023-11-09] MEDS: KETOROLAC 30 MG/ML VIAL 15 MG IM (10:01)
[2023-11-09] MEDS: SODIUM CHLORIDE 0.9% 1,000 ML 1000 ML IV (10:02)
== END 2023-11-09 11:40 | disposition home or self-care (01) ==
PROVIDERS: Emergency Provider Student in an Organized Health Care Education/Training Program; PCP Internal Medicine
DX: M54.50 Low back pain, unspecified (principal); R10.9 Unspecified abdominal pain; I10 Essential (primary) hypertension; E03.9 Hypothyroidism, unspecified
CPT/HCPCS: 36415; 74176; 80048; 81003; 85025; 96360; 96372; 99284; J1885

== ENCOUNTER → 2024-03-06 14:50 | Outpatient (CLI) | payer OTHER, SELFPAY ==
[2022-04-26 13:19] VITALS: BMI 22.8
--- NOTE | 2024-03-06 14:51 | DI.RAD.S_ITS ---
PROCEDURE: XR CHEST 2V INDICATIONS: Cough TECHNIQUE: 2 views of the chest were acquired. COMPARISON: None. FINDINGS: Surgical changes and devices: None. Lungs and pleura: Possible focal opacity and left lower lung. No dense consolidation elsewhere. Mediastinum: Normal heart size Bones and chest wall: Unremarkable IMPRESSION: Small focal opacity in the left lower lung possibly infectious Consider future imaging surveillance to assess for resolution. No dense consolidation or pleural effusion elsewhere Dictated by: Jerry Holm M.D. on 03/06/2024 at 16:33 Approved by: Jerry Holm M.D. on 03/06/2024 at 16:35
== END ==
PROVIDERS: PCP Internal Medicine; Referring Provider Nurse Practitioner Family; Visit Provider Nurse Practitioner Family
DX: R05.9 Cough, unspecified (principal)
CPT/HCPCS: 71046

== ENCOUNTER → 2024-03-27 09:41 | Outpatient (CLI) | payer OTHER, SELFPAY ==
[2022-04-26 13:19] VITALS: BMI 22.8
--- NOTE | 2024-03-27 09:45 | DI.RAD.S_ITS ---
PROCEDURE: XR CHEST 2V INDICATIONS: ACUTE COUGH TECHNIQUE: 2 views of the chest were acquired. COMPARISON: [facility], CR, XR CHEST 2V, 03/06/2024, 14:51. FINDINGS: Surgical changes and devices: None. Lungs and pleura: Lungs are clear. No pleural effusions or pneumothorax. Mediastinum: Mediastinal contours are normal. Heart size is normal. Bones and chest wall: No suspicious bony abnormalities. Soft tissues appear unremarkable. IMPRESSION: No acute cardiopulmonary abnormality is seen. Dictated by: Harvey Mckinney M.D. on 03/27/2024 at 13:20 Approved by: Harvey Mckinney M.D. on 03/27/2024 at 13:21
== END ==
PROVIDERS: PCP Internal Medicine; Referring Provider Physician Assistant; Visit Provider Physician Assistant
DX: R05.1 Acute cough (principal)
CPT/HCPCS: 71046

== ENCOUNTER 2024-05-21 07:56 | Observation (INO) | payer OTHER, SELFPAY ==
[2022-04-26 13:19] VITALS: BMI 22.8
[2024-05-21] VITALS (15 sets, daily range): BP systolic 115–159; BP diastolic 60–87; PULSE 60–75; RESP 15–37; TEMP 36.3–37; O2SAT 98–100; BMI 23.8
--- NOTE | 2024-05-21 | DI.RAD.S_ITS ---
PROCEDURE: XR CHEST 1V INDICATIONS: NG placement TECHNIQUE: One view of the chest was acquired. COMPARISON: [facility], CT, CT ABDOMEN PELVIS W CON, 05/21/2024, 8:38. [facility], CR, XR CHEST 2V, 03/06/2024, 14:51. [facility], CR, XR CHEST 2V, 03/27/2024, 10:06. FINDINGS: Surgical changes and devices: The tip of the gastric tube can be seen overlying the distal stomach. Lungs and pleura: Lungs are clear. No pleural effusions or pneumothorax. Mediastinum: Mediastinal contours appear normal. Heart size is normal. Bones and chest wall: No suspicious bony lesions. A few prominent loops of small bowel can be seen. IMPRESSION: The tip of the gastric tube is seen overlying the distal stomach. Dictated by: Daniel Lynch M.D. on 05/21/2024 at 9:56 Approved by: Daniel Lynch M.D. on 05/21/2024 at 9:57
--- NOTE | 2024-05-21 | DI.RAD.S_ITS ---
PROCEDURE: XR GASTROGRAFIN CHALLENGE COMPARISON: [facility], CT, CT ABDOMEN PELVIS W CON, 05/21/2024, 8:38. [facility], CR, XR CHEST 1V, 05/21/2024, 10:39. INDICATIONS: Small bowel obstruction FINDINGS: Gastrografin was given 4 hours prior to these images. Contrast can be seen within dilated loops of small bowel, measuring up to 3.3 cm. Contrast is also seen within the colon. Excreting contrast can be seen within the urinary bladder. Degenerative changes are seen. IMPRESSION: There is contrast seen within the colon, which confirms no complete small bowel obstruction. High-grade partial small-bowel obstruction is suspected. Dictated by: Daniel Lynch M.D. on 05/21/2024 at 16:58 Approved by: Daniel Lynch M.D. on 05/21/2024 at 17:00
--- NOTE | 2024-05-21 08:06 | EKG_ITS ---
[address] [id number] Test Date: 2024-05-21 Pat Name: Alaina Singer Department: Located Within [facility] Room: Gender: Female Telecommunications Sales Representative: ALIREZA : 1965 Requested By: Order Number: [id number] Reading MD: Nikko Laurent MD Measurements Intervals [place] Rate: 61 P: 53 [place]: 138 QRS: 18 QRSD: 72 T: 30 QT: 434 QTc: 436 Interpretive Statements Normal sinus rhythm Electronically Signed On 05-22-2024 7:30:58 PDT by Nikko Laurent MD
[2024-05-21 08:24] LABS: Add Manual Diff / Slide Review NO; Basophils Absolute Auto 0 /uL (0-100); Basophils Percent Auto 0.2 % (0-2); Eosinophils Absolute Auto 0 /uL (0-450); Eosinophils Percent Auto 0.1 % (2-4); Hematocrit 43.4 % (36-46); Hemoglobin 14.7 g/dL (12.0-16.0); Lymphocytes Absolute Auto 900 /uL (1100-4500); Lymphocytes Percent Auto 8.3 % (25-40); Mean Corpuscular Hemoglobin 30.8 PG (26-34); Mean Corpuscular Volume 90.6 fL (80-100); Monocytes Absolute Auto 300 /uL (0-900); Monocytes Percent Auto 2.4 % (3-14); Neutrophils Absolute Auto 10100 /uL (1500-7000); Platelet Count 285 X10^3/uL (150-400); Red Blood Cell Count 4.79 X10^6/uL (4.0-5.2); White Blood Cell Count 11.4 X10^3/uL (4.5-11.0)
--- NOTE | 2024-05-21 08:30 | DI.CT.S_ITS ---
PROCEDURE: CT ABDOMEN PELVIS W CON INDICATIONS: abdominal pain TECHNIQUE: After the administration of intravenous contrast, axial sections acquired from the lung bases to the pubic symphysis. Coronal and sagittal reformats were performed. For radiation dose reduction, the following was used: automated exposure control, adjustment of mA and/or kV according to patient size. COMPARISON: [facility], CT, CT ABDOMEN PELVIS WO CON, 11/09/2023, 10:05. [facility], CT, CT ABDOMEN PELVIS W CON, 04/26/2022, 10:28. FINDINGS: Image quality: Diagnostic. Lower Chest: No significant findings. ABDOMEN: Liver: No solid mass. Stable small liver cysts are seen. Gallbladder: No radiopaque gallstones or wall thickening. Biliary ducts: No biliary dilation. Pancreas: No ductal dilation. Spleen: Size is within normal limits. Adrenal Glands: No adrenal nodules. Kidneys and Ureters: No hydronephrosis. No solid mass. No complex renal cystic lesion which requires follow up. Stomach and Bowel: Abnormally dilated loops of small can be seen measuring up to 3 1 cm. There is a transition seen within the right lower mid abdomen, where there is thickened small seen, as on series 2, image 92 and on series 3, image 32. The small bowel is decompressed distal to this point. A normal appendix is noted. The colon is decompressed. Moderate diverticular formation can be seen throughout the colon. Peritoneum: No abnormal intraperitoneal fluid. No free air. Ventral Wall: No significant ventral hernia. Abdominal Nodes: No retroperitoneal or mesenteric adenopathy by size criteria. Vessels: Aorta and inferior vena cava are normal in size. PELVIS: Pelvic Organs: No adnexal masses are seen on either side. Bladder: No bladder wall thickening, accounting for underdistention. Pelvic Nodes: No enlarged lymph nodes. Miscellaneous: No inguinal hernias are seen. Bones: No aggressive osseous abnormality. This patient has transitional lumbar anatomy. For the purposes of this examination, the level with the last pair of ribs is considered to be T12. By this numbering scheme, the L5 level is transitional and is highly sacralized. IMPRESSION: Small-bowel obstruction, with a transition point seen within the right lower mid abdomen. Additional findings: Highly sacralized L5 level Normal appendix Diverticulosis, without active diverticulitis Dictated by: Daniel Lynch M.D. on 05/21/2024 at 8:00 Approved by: Daniel Lynch M.D. on 05/21/2024 at 8:04
[2024-05-21 08:37] LABS: Alanine Aminotransferase 21 IU/L (<35); Albumin 4.7 g/dL (3.5-5.0); Albumin Globulin Ratio 1.3 (1.0-2.8); Alkaline Phosphatase 66 U/L (38-126); Aspartate Aminotransferase 33 IU/L (14-36); BUN Creatinine Ratio 26.9 (6-22); Bilirubin Total 0.7 mg/dL (0.2-1.3); Blood Urea Nitrogen 14 mg/dL (7-17); Calcium 9.5 mg/dL (8.4-10.2); Carbon Dioxide 25 mmol/L (22-32); Chloride 103 mmol/L (98-107); Estimated Glomerular Filt Rate > 60 mL/min (>60); Globulin 3.6 g/dL (1.7-4.1); Glucose 148 mg/dL (80-110); HEMOLYSIS 24 (0-50); Lipase 73 U/L (23-300); Potassium 3.8 mmol/L (3.4-5.1); Sodium 138 mmol/L (137-145); Total Protein 8.3 g/dL (6.3-8.2)
--- NOTE | 2024-05-21 08:40 | ED_ITS ---
HPI - Abdominal Pain General Chief Complaint: Abdominal Pain Stated Complaint: abd pain Time Seen by Provider: 05/21/24 08:19 Source: patient Mode of arrival: Ambulatory History of Present Illness HPI narrative: 59-year-old female history of hypertension, hypothyroidism, small-bowel obstruction, tubal ligation, takasubo cardiomyopathy presents with nonbilious nonbloody nausea and vomiting multiple episodes and diffuse abdominal pain since last evening. Patient reports similar presentation in the past consistent with small-bowel obstruction where she required a nasogastric tube at that time and admission. Patient denies fever, chills, back pain, chest pain, shortness of breath, cough and any other URI symptoms, hematuria or urinary complaints. Other than what is stated 14 point review of system is negative Related Data Home Medications Medication Instructions Recorded Confirmed amlodipine 10 mg tablet 10 mg PO DAILY 03/06/24 03/06/24 lisinopril 40 mg tablet 40 mg PO DAILY 03/06/24 03/06/24 Previous Rx's Medication Instructions Recorded levothyroxine 75 mcg tablet 75 mcg PO DAILY #90 tabs 02/20/20 (Synthroid) azithromycin 250 mg tablet See Rx Instructions PO .COMPLEX #6 03/06/24 tabs benzonatate 200 mg capsule 200 mg PO BID PRN cough #28 caps 03/06/24 Allergies Allergy/AdvReac Type Severity Reaction Status Date / Time bacitracin AdvReac Intermediate Rash Verified 03/06/24 14:36 Review of Systems Review of Systems ROS Unobtainable: All systems reviewed & are unremarkable except as noted in HPI and below Patient History Medical History History of left heart catheterization Head injury Chronic thoracic back pain Chronic neck pain Somatic dysfunction of lower extremity Segmental and somatic dysfunction of rib cage Thoracic region somatic dysfunction Cranial somatic dysfunction Bilateral foot pain Vaginal dryness, menopausal Well woman exam with routine gynecological exam Family history of breast cancer in first degree relative Hypothyroidism (acquired) Hx of radioactive iodine thyroid ablation Cervical somatic dysfunction Neck stiffness Skin rash Shoulder pain Thyroid nodule Surgical History H/O tubal ligation Family History Father Stroke Mother Stroke Social History household members: spouse Smoking Status: Never smoker alcohol intake: never substance use type: does not use Smoking Status: Never smoker Exam Narrative Exam Narrative: GENERAL: [59] year old patient appears stated age. Well-developed patient, in mild distress. HEAD: Atraumatic. Normocephalic. EYES: Pupils equal round and reactive. Extraocular motions intact. No scleral icterus. No injection or drainage. ENT: Nose without bleeding, purulent drainage. Throat without erythema, tonsillar hypertrophy or exudate. Airway patent. NECK: Trachea midline. Non tender CARDIOVASCULAR: Regular rate and rhythm without murmurs, gallops, or rubs. RESPIRATORY: Clear to auscultation. Breath sounds equal bilaterally. No wheezes, rales, or rhonchi. GASTROINTESTINAL: Abdomen soft, non-tender, nondistended, no r/r/g. EXTREMITIES: No edema or joint tenderness. BACK: Nontender without deformity or crepitance. No flank tenderness. NEURO: AOx3. SKIN: No rash or erythema of visible areas Initial Vital Signs Initial Vital Signs: Vital Signs Temperature 97.4 F L 05/21/24 08:06 Pulse Rate 66 05/21/24 08:06 Respiratory Rate 18 05/21/24 08:06 Blood Pressure 159/70 H 05/21/24 08:06 Pulse Oximetry 100 05/21/24 08:06 Oxygen Delivery Method Room Air 05/21/24 08:06 Course Orders Ordered: ED Orders 05/21/24 07:59 EKG-12 Lead Stat 05/21/24 08:16 Complete Blood Count AUTO DIFF Stat Comprehensive Metabolic Panel Stat Lipase Stat Trop I [Troponin I] Stat 05/21/24 08:30 CT abdomen pelvis w con Stat Ondansetron HCl (Ondansetron 4 Mg/2 Ml Inj) 4 mg IV NOW PRN PRN Reason: Nausea And Vomiting Ondansetron HCl (Ondansetron 4 Mg Odt) 4 mg PO NOW PRN PRN Reason: Nausea And Vomiting Discontinued Medications Lactated Ringer's (Lactated Ringers) 1,000 mls @ 1,000 mls/hr IV BOLUS ONE Stop: 05/21/24 09:31 Last Infusion: 05/21/24 09:50 Dose: Infused Documented By: Admin: 05/21/24 08:51 Dose: 1,000 mls/hr Documented By: RB Ketorolac Tromethamine (Ketorolac 30 Mg/Ml Vial) 15 mg IV NOW ONE Stop: 05/21/24 08:33 Last Admin: 05/21/24 08:50 Dose: 15 mg Documented By: RB Lidocaine HCl (Lidocaine 2% (Glydo) 6 Ml Gel) 6 ml TOP NOW ONE Stop: 05/21/24 09:58 Vital Signs Vital signs: Vital Signs - 8 hr 05/21/24 08:06 05/21/24 08:08 05/21/24 08:09 Temperature 97.4 F L Pulse Rate 66 63 Respiratory Rate 18 27 H Blood Pressure 159/70 H 129/60 Pulse Oximetry 100 100 Oxygen Delivery Method Room Air 05/21/24 08:09 05/21/24 08:30 05/21/24 08:30 Temperature Pulse Rate 66 60 Respiratory Rate 37 H 24 Blood Pressure 135/65 Pulse Oximetry 100 100 Oxygen Delivery Method 05/21/24 08:52 05/21/24 08:52 05/21/24 09:00 Temperature Pulse Rate 73 67 Respiratory Rate 21 22 Blood Pressure 148/72 H Pulse Oximetry 98 100 Oxygen Delivery Method 05/21/24 09:00 05/21/24 09:30 05/21/24 09:30 Temperature Pulse Rate 63 Respiratory Rate 21 Blood Pressure 115/67 115/62 Pulse Oximetry 100 Oxygen Delivery Method MDM - Abdominal Pain Lab Data 05/21/24 08:16 05/21/24 08:16 Labs: Lab Results 05/21/24 Range/Units 08:16 WBC 11.4 H (4.5-11.0) X10^3/uL RBC 4.79 (4.0-5.2) X10^6/uL Hgb 14.7 (12.0-16.0) g/dL Hct 43.4 (36-46) % MCV 90.6 (80-100) fL MCH 30.8 (26-34) PG MCHC 34.0 (30-36) % RDW 13.0 (11.6-14.8) % Plt Count 285 (150-400) X10^3/uL Neut % (Auto) 89.0 H (50-75) % Lymph % (Auto) 8.3 L (25-40) % [place] % (Auto) 2.4 L (3-14) % Eos % (Auto) 0.1 L (2-4) % Baso % (Auto) 0.2 (0-2) % Neut # (Auto) 70064 H (2927-9204) /uL Lymph # (Auto) 900 L (2570-5237) /uL [place] # (Auto) 300 (0-900) /uL Eos # (Auto) 0 (0-450) /uL Baso # (Auto) 0 (0-100) /uL Sodium 138 (137-145) mmol/L Potassium 3.8 (3.4-5.1) mmol/L Chloride 103 (98-107) mmol/L Carbon Dioxide 25 (22-32) mmol/L BUN 14 (7-17) mg/dL Creatinine 0.52 (0.52-1.04) mg/dL Estimated GFR > 60 (>60) mL/min BUN/Creatinine Ratio 26.9 H (6-22) Glucose 148 H (80-110) mg/dL Calcium 9.5 (8.4-10.2) mg/dL Total Bilirubin 0.7 (0.2-1.3) mg/dL AST 33 (14-36) IU/L ALT 21 (<35) IU/L Alkaline Phosphatase 66 (38-126) U/L Troponin I < 0.012 (0.01-0.034) ng/mL Total Protein 8.3 H (6.3-8.2) g/dL Albumin 4.7 (3.5-5.0) g/dL Globulin 3.6 (1.7-4.1) g/dL Albumin/Globulin Ratio 1.3 (1.0-2.8) Lipase 73 (23-300) U/L Point of care testing: Urine Dip Bedside Urine Glucose Negative Bedside Urine Bilirubin - Negative Bedside Urine Ketone - Negative Urine Specific [place] 1.005 Bedside Urine Occult Blood - Negative Bedside Urine pH 6.5 Bedside Urine Protein - Negative Bedside Urine Urobilinogen - Negative Bedside Urine Nitrite - Negative Bedside Urine Leukocytes - Negative Esterase Imaging Data CT scan - abdomen/pelvis: Radiologist's Impression: [address] [address] [address] Scan Report Signed Patient: Alaina Singer MR#: [id number] : 1965 Acct:[id number] Age/Sex: 59 / F Date of Service: 05/21/24 Loc: ED Accession Number: [id number] Procedure: CT abdomen pelvis w con Ordering Provider: Nikko Gmoes D.O. PROCEDURE: CT ABDOMEN PELVIS W CON INDICATIONS: abdominal pain TECHNIQUE: After the administration of intravenous contrast, axial sections acquired from the lung bases to the pubic symphysis. Coronal and sagittal reformats were performed. For radiation dose reduction, the following was used: automated exposure control, adjustment of mA and/or kV according to patient size. COMPARISON: [facility], CT, CT ABDOMEN PELVIS WO CON, 11/09/2023, 10:05. [facility], CT, CT ABDOMEN PELVIS W CON, 04/26/2022, 10:28. FINDINGS: Image quality: Diagnostic. Lower Chest: No significant findings. ABDOMEN: Liver: No solid mass. Stable small liver cysts are seen. Gallbladder: No radiopaque gallstones or wall thickening. Biliary ducts: No biliary dilation. Pancreas: No ductal dilation. Spleen: Size is within normal limits. Adrenal Glands: No adrenal nodules. Kidneys and Ureters: No hydronephrosis. No solid mass. No complex renal cystic lesion which requires follow up. Stomach and Bowel: Abnormally dilated loops of small can be seen measuring up to 3 1 cm. There is a transition seen within the right lower mid abdomen, where there is thickened small seen, as on series 2, image 92 and on series 3, image 32. The small bowel is decompressed distal to this point. A normal appendix is noted. The colon is decompressed. Moderate diverticular formation can be seen throughout the colon. Peritoneum: No abnormal intraperitoneal fluid. No free air. Ventral Wall: No significant ventral hernia. Abdominal Nodes: No retroperitoneal or mesenteric adenopathy by size criteria. Vessels: Aorta and inferior vena cava are normal in size. PELVIS: Pelvic Organs: No adnexal masses are seen on either side. Bladder: No bladder wall thickening, accounting for underdistention. Pelvic Nodes: No enlarged lymph nodes. Miscellaneous: No inguinal hernias are seen. Bones: No aggressive osseous abnormality. This patient has transitional lumbar anatomy. For the purposes of this examination, the level with the last pair of ribs is considered to be T12. By this numbering scheme, the L5 level is transitional and is highly sacralized. IMPRESSION: Small-bowel obstruction, with a transition point seen within the right lower mid abdomen. Additional findings: Highly sacralized L5 level Normal appendix Diverticulosis, without active diverticulitis Dictated by: Daniel Lynch M.D. on 05/21/2024 at 8:00 Approved by: Daniel Lynch M.D. on 05/21/2024 at 8:04 ECG Data Attestation: I personally reviewed and interpreted this ECG as follows: Interpretation: NSR HR 61 TX 138 QRS [address]-t wave change No old ekg to compare against MDM Narrative Medical decision making narrative: All lab work CT scan vital signs nurse triage note previous ER visits and all imaging modality all reviewed. NG tube placed here in ER. Case discussed with Dr. Wright who has graciously accepted patient for inpatient admission. Differential diagnosis includes small bowel obstruction, pancreatitis, kidney stone, kidney infection, dehydration. Discharge Plan Departure Patient Disposition: Admitted as Observation Clinical Impression: SBO (small bowel obstruction) Prescriptions: No Action amlodipine 10 mg tablet 10 mg PO DAILY lisinopril 40 mg tablet 40 mg PO DAILY benzonatate 200 mg capsule 200 mg PO BID PRN (Reason: cough) Qty: 28 0RF levothyroxine [Synthroid] 75 mcg tablet 75 mcg PO DAILY Qty: 90 1RF azithromycin 250 mg tablet See Rx Instructions PO .COMPLEX Qty: 6 0RF Rx Instructions: For 250 mg dose pack: take 500 mg today (day 1), then 250 mg for 4 days (days 2-5) PO Referrals: Lise Hutchins MD [Primary Care Provider] -
[2024-05-21] MEDS: KETOROLAC 30 MG/ML VIAL 15 MG IV ×2 (08:50→12:09)
[2024-05-21] MEDS: LACTATED RINGERS 1,000 ML 1000 ML IV (08:51)
[2024-05-21 09:10] LABS: Troponin I < 0.012 ng/mL (0.01-0.034)
--- NOTE | 2024-05-21 10:24 | P.HP_ITS ---
History of Present Illness History of Present Illness Date Patient Seen: 05/21/24 Time Patient Seen: 10:24 Chief complaint: abd pain Narrative: 59-year-old white female with 4 previous bowel obstructions all of which responded with medical management, only past surgical history of a tubal ligation, has had normal colonoscopies before, has never had an upper scope. Has never had a MR enteroclysis or further investigation of what causes her intermittent bowel obstructions. Her last obstruction was 2 years ago. She had been offered exploratory surgery before, of course with the risk of increasing the amount of scar tissue and obstruction, for which she is fine with conservative management. FOR[facility]LY [facility], [facility] Medical History History of left heart catheterization Head injury Chronic thoracic back pain Chronic neck pain Somatic dysfunction of lower extremity Segmental and somatic dysfunction of rib cage Thoracic region somatic dysfunction Cranial somatic dysfunction Bilateral foot pain Vaginal dryness, menopausal Well woman exam with routine gynecological exam Family history of breast cancer in first degree relative Hypothyroidism (acquired) Hx of radioactive iodine thyroid ablation Cervical somatic dysfunction Neck stiffness Skin rash Shoulder pain Thyroid nodule Surgical History H/O tubal ligation Family History Father Stroke Mother Stroke Social History household members: spouse Smoking Status: Never smoker alcohol intake: never substance use type: does not use Meds Home Medications and Allergies Home Medications Medication Instructions Recorded Confirmed Type levothyroxine 75 mcg tablet 75 mcg PO DAILY #90 tabs 02/20/20 03/06/24 Rx (Synthroid) amlodipine 10 mg tablet 10 mg PO DAILY 03/06/24 03/06/24 History azithromycin 250 mg tablet See Rx Instructions PO .COMPLEX #6 03/06/24 Rx tabs benzonatate 200 mg capsule 200 mg PO BID PRN cough #28 caps 03/06/24 03/06/24 Rx lisinopril 40 mg tablet 40 mg PO DAILY 03/06/24 03/06/24 History Allergies Allergy/AdvReac Type Severity Reaction Status Date / Time bacitracin AdvReac Intermediate Rash Verified 03/06/24 14:36 Review of Systems Review of Systems ROS: Yes All systems reviewed with the patient and are negative except as otherwise documented Exam Vital Signs (past 8 hours): - 05/21/24 08:06 05/21/24 08:08 05/21/24 08:09 Temperature 97.4 F L Pulse Rate 66 63 Respiratory Rate 18 27 H Blood Pressure 159/70 H 129/60 Pulse Oximetry 100 100 Oxygen Delivery Method Room Air 05/21/24 08:09 05/21/24 08:30 05/21/24 08:30 Temperature Pulse Rate 66 60 Respiratory Rate 37 H 24 Blood Pressure 135/65 Pulse Oximetry 100 100 Oxygen Delivery Method 05/21/24 08:52 05/21/24 08:52 05/21/24 09:00 Temperature Pulse Rate 73 67 Respiratory Rate 21 22 Blood Pressure 148/72 H Pulse Oximetry 98 100 Oxygen Delivery Method 05/21/24 09:00 05/21/24 09:30 05/21/24 09:30 Temperature Pulse Rate 63 Respiratory Rate 21 Blood Pressure 115/67 115/62 Pulse Oximetry 100 Oxygen Delivery Method Oxygen Delivery Method Room Air Narrative Exam Narrative: Gen: NAD, sitting comfortably in bed, appears well HEENT: Sclera are anicteric, head is normocephalic and atraumatic, trachea is midline. CV: RRR, no JVD Resp: clear to auscultation bilaterally, equal chest wall movement bilaterally Abd: soft, nontender, normoactive bowel sounds Ext: no edema, full range of motion Neuro: Cranial nerves II-XII grossly intact, no focal deficits Skin: No erythema or ecchymosis Objective Imaging CT scan - abdomen: My impression: CT scan reviewed by me does not show free air, free fluid, pneumatosis or any other concerning findings that would indicate need for surgical intervention Labs 05/21/24 08:16 05/21/24 08:16 Labs: Laboratory Results - last 24 hr 05/21/24 08:16 WBC 11.4 H RBC 4.79 Hgb 14.7 Hct 43.4 MCV 90.6 MCH 30.8 MCHC 34.0 RDW 13.0 Plt Count 285 Neut % (Auto) 89.0 H Lymph % (Auto) 8.3 L [place] % (Auto) 2.4 L Eos % (Auto) 0.1 L Baso % (Auto) 0.2 Neut # (Auto) 92789 H Lymph # (Auto) 900 L [place] # (Auto) 300 Eos # (Auto) 0 Baso # (Auto) 0 Sodium 138 Potassium 3.8 Chloride 103 Carbon Dioxide 25 BUN 14 Creatinine 0.52 Estimated GFR > 60 BUN/Creatinine Ratio 26.9 H Glucose 148 H Calcium 9.5 Total Bilirubin 0.7 AST 33 ALT 21 Alkaline Phosphatase 66 Troponin I < 0.012 Total Protein 8.3 H Albumin 4.7 Globulin 3.6 Albumin/Globulin Ratio 1.3 Lipase 73 Assessment & Plan Assessment and plan (1) SBO (small bowel obstruction): Status: Acute Assessment & Plan narrative: NG decompression, IV fluids, gastro-challenged later today. Time-Based Coding :: [TOTAL MINUTES] spent with patient and on the chart (including review of chart, obtaining history, exam, reviewing outside data, placing orders, documenting exam and treatment plan, and counseling patient) on [DATE]. PROFEE Enterprise Analyst Document charge(s): Yes Charge Codes Initial inpatient/observation care: [id number]
[2024-05-21] MEDS: LIDOCAINE 2% (GLYDO) 6 ML GEL TOP (10:46)
--- NOTE | 2024-05-21 11:09 | PC.NURSE ---
Dr. Wright successfully placed NG tube in patient rt nare. Dr. Wright placed fluid in line and pushed while this RN listened at stomach and this RN heard fluid bolus. This RN connected suction and Dr. Wright turned patient on intermittent suction. X-ray order placed to confirm placement. This RN secured NG tube with sticker and marked tube at end of nare with black sharpie.
[2024-05-21] MEDS: SODIUM CHLORIDE 0.9% 1,000 ML 100 ML IV ×2 (11:55→21:58)
[2024-05-21] MEDS: HYDROMORPHONE 0.5 MG INJ IV ×2 (12:09→15:52)
[2024-05-21] MEDS: ONDANSETRON 4 MG/2 ML INJ IV (16:33)
--- NOTE | 2024-05-21 19:09 | PC.NURSE ---
1800: NGT clamped as ordered x 4 hours. Patient understands clear liquid trial.Up OOB to BR, voiding. IVF infusing. Calls appropriately to staff assist.
[2024-05-22] VITALS: BP 136/74; PULSE 84; RESP 19; TEMP 36.4; O2SAT 98
[2024-05-22] MEDS: KETOROLAC 30 MG/ML VIAL 15 MG IV ×3 (00:13→12:12)
--- NOTE | 2024-05-22 01:55 | PC.NURSE ---
Addendum entered by Jessica Pratt R.N. 05/22/24 04:26: pt up to the bathroom to urinate, pt passing gas. pt had a medium size bm (form and brown). Original Note: Pt was on a clear liquid diet for 4 hours while NGT was clamped. pt only had a few bites of ice chips during this time, no c/o nausea or vomiting, NGT reconected to LIS 4 hours after, no measurable output noted.
[2024-05-22 04:00] VITALS: BP 137/83; PULSE 68; RESP 18; TEMP 36.9; O2SAT 98
[2024-05-22 05:34] LABS: Add Manual Diff / Slide Review NO; Basophils Absolute Auto 0 /uL (0-100); Basophils Percent Auto 0.5 % (0-2); Eosinophils Absolute Auto 100 /uL (0-450); Hematocrit 40.5 % (36-46); Hemoglobin 13.8 g/dL (12.0-16.0); Lymphocytes Absolute Auto 1500 /uL (1100-4500); Mean Corpuscular HGB Conc 34.1 % (30-36); Mean Corpuscular Hemoglobin 31.1 PG (26-34); Mean Corpuscular Volume 91.2 fL (80-100); Monocytes Absolute Auto 600 /uL (0-900); Monocytes Percent Auto 7.5 % (3-14); Neutrophils Absolute Auto 6400 /uL (1500-7000); Platelet Count 250 X10^3/uL (150-400); Red Blood Cell Count 4.44 X10^6/uL (4.0-5.2); Red Cell Distribution Width 13.4 % (11.6-14.8); White Blood Cell Count 8.6 X10^3/uL (4.5-11.0)
[2024-05-22 05:45] LABS: Alanine Aminotransferase 19 IU/L (<35); Albumin 3.9 g/dL (3.5-5.0); Albumin Globulin Ratio 1.4 (1.0-2.8); Alkaline Phosphatase 60 U/L (38-126); Aspartate Aminotransferase 27 IU/L (14-36); BUN Creatinine Ratio 22.8 (6-22); Blood Urea Nitrogen 13 mg/dL (7-17); Calcium 8.5 mg/dL (8.4-10.2); Carbon Dioxide 25 mmol/L (22-32); Chloride 110 mmol/L (98-107); Estimated Glomerular Filt Rate > 60 mL/min (>60); Globulin 2.8 g/dL (1.7-4.1); Glucose 99 mg/dL (80-110); HEMOLYSIS < 15 (0-50); Magnesium 2.1 mg/dL (1.6-2.3); Potassium 3.5 mmol/L (3.4-5.1); Sodium 141 mmol/L (137-145); Total Protein 6.7 g/dL (6.3-8.2)
[2024-05-22] MEDS: LEVOTHYROXINE 75 MCG TABLET PO (06:11)
[2024-05-22 08:00] VITALS: BP 124/89; PULSE 70; RESP 18; TEMP 36.7; O2SAT 99
[2024-05-22] MEDS: POTASSIUM CHLORIDE IN WATER 10 MEQ/100 ML PIGGYBACK 100 MEQ IV (08:54)
[2024-05-22 10:35] VITALS: BP 147/87; PULSE 67
[2024-05-22] MEDS: lisinopriL 20 MG TABLET 40 MG PO (10:35)
[2024-05-22] MEDS: AMLODIPINE 5 MG TABLET 10 MG PO (10:35)
--- NOTE | 2024-05-22 10:47 | P.PN_ITS ---
Subjective Subjective Date Patient Seen: 05/22/24 Time Patient Seen: 10:47 Interval history: Patient had a bowel movement last night, but had nausea after clamping trial and clears. Another bowel movement this morning, tolerating clears without any new nausea. Exam Vital Signs (past 8 hours): - 05/22/24 04:00 05/22/24 08:00 05/22/24 10:35 Temperature 98.5 F 98.0 F Pulse Rate 68 70 67 Respiratory Rate 18 18 Blood Pressure 137/83 124/89 147/87 H Pulse Oximetry 98 99 Oxygen Flow Rate 0 0 Oxygen Delivery Method Room Air Oxygen Flow Rate 0 GI Palpation: soft, No guarding, No rigid and No tender Objective Labs 05/22/24 05:10 05/22/24 05:10 Labs: Laboratory Results - last 24 hr 05/22/24 05:10 WBC 8.6 RBC 4.44 Hgb 13.8 Hct 40.5 MCV 91.2 MCH 31.1 MCHC 34.1 RDW 13.4 Plt Count 250 Neut % (Auto) 74.0 Lymph % (Auto) 17.0 L [place] % (Auto) 7.5 Eos % (Auto) 1.0 L Baso % (Auto) 0.5 Neut # (Auto) 6400 Lymph # (Auto) 1500 [place] # (Auto) 600 Eos # (Auto) 100 Baso # (Auto) 0 Sodium 141 Potassium 3.5 Chloride 110 H Carbon Dioxide 25 BUN 13 Creatinine 0.57 Estimated GFR > 60 BUN/Creatinine Ratio 22.8 H Glucose 99 Calcium 8.5 Magnesium 2.1 Total Bilirubin 1.0 AST 27 ALT 19 Alkaline Phosphatase 60 Total Protein 6.7 Albumin 3.9 Globulin 2.8 Albumin/Globulin Ratio 1.4 [facility] Medical History History of left heart catheterization Head injury Chronic thoracic back pain Chronic neck pain Somatic dysfunction of lower extremity Segmental and somatic dysfunction of rib cage Thoracic region somatic dysfunction Cranial somatic dysfunction Bilateral foot pain Vaginal dryness, menopausal Well woman exam with routine gynecological exam Family history of breast cancer in first degree relative Hypothyroidism (acquired) Hx of radioactive iodine thyroid ablation Cervical somatic dysfunction Neck stiffness Skin rash Shoulder pain Thyroid nodule Surgical History H/O tubal ligation Family History Father Stroke Mother Stroke Social History household members: spouse Smoking Status: Never smoker alcohol intake: never substance use type: does not use Assessment & Plan Assessment and plan (1) SBO (small bowel obstruction): Status: Acute Assessment & Plan narrative: Improving with NGT decompression, contrast has made it to the colon. Trial a liquid diet again today, then home on a soft diet for one week if improves. Time-Based Coding :: [TOTAL MINUTES] spent with patient and on the chart (including review of chart, obtaining history, exam, reviewing outside data, placing orders, documenting exam and treatment plan, and counseling patient) on [DATE]. PROFEE [employer] Warehouse Agent Document charge(s): Yes Charge Codes Subsequent inpatient/observation care: [id number]
[2024-05-22 12:00] VITALS: BP 136/84; PULSE 68; RESP 16; TEMP 36.4; O2SAT 99
[2024-05-22] MEDS: POTASSIUM CHLORIDE 20 MEQ/15 ML UDC 40 MEQ PO (12:12)
--- NOTE | 2024-05-22 15:25 | P.DS_ITS ---
History of Present Illness History of Present Illness Chief complaint: abd pain Narrative: 59-year-old white female with 4 previous bowel obstructions all of which responded with medical management, only past surgical history of a tubal ligation, has had normal colonoscopies before, has never had an upper scope. Has never had a MR enteroclysis or further investigation of what causes her intermittent bowel obstructions. Her last obstruction was 2 years ago. She had been offered exploratory surgery before, of course with the risk of increasing the amount of scar tissue and obstruction, for which she is fine with conservative management. Discharge Providers Provider Date of admission: 05/21/24 10:34 Discharge Date: 05/22/24 Primary care physician: Lise Hutchins MD Discharge provider: Memo Wright MD Summary Hospital Course Discharge Diagnosis: Partial small bowel obstruction Hospital Course: Patient was admitted, nasogastric tube placed, Gastrografin challenge performed. Patient started having more bowel movements and her symptoms started to improve. Nasogastric tube was removed and patient felt appropriate for discharge. Status at Discharge Cognitive/behavioral status at discharge: at baseline, oriented Time Spent with Patient Time spent: Less than 30 minutes Exam Vital Signs (past 8 hours): - 05/22/24 08:00 05/22/24 08:00 05/22/24 10:35 Temperature 98.0 F Pulse Rate 70 67 Respiratory Rate 18 Blood Pressure 124/89 147/87 H Pulse Oximetry 99 Oxygen Delivery Method Room Air Oxygen Flow Rate 0 05/22/24 12:00 Temperature 97.5 F L Pulse Rate 68 Respiratory Rate 16 Blood Pressure 136/84 Pulse Oximetry 99 Oxygen Delivery Method Oxygen Flow Rate 0 Oxygen Delivery Method Room Air Oxygen Flow Rate 0 Narrative Exam Narrative: Gen: NAD, sitting comfortably in bed, appears well HEENT: Sclera are anicteric, head is normocephalic and atraumatic, trachea is midline. CV: RRR, no JVD Resp: clear to auscultation bilaterally, equal chest wall movement bilaterally Abd: soft, nontender, normoactive bowel sounds Ext: no edema, full range of motion Neuro: Cranial nerves II-XII grossly intact, no focal deficits Skin: No erythema or ecchymosis Objective Labs 05/22/24 05:10 05/22/24 05:10 Labs: Laboratory Results - last 24 hr 05/22/24 05:10 WBC 8.6 RBC 4.44 Hgb 13.8 Hct 40.5 MCV 91.2 MCH 31.1 MCHC 34.1 RDW 13.4 Plt Count 250 Neut % (Auto) 74.0 Lymph % (Auto) 17.0 L [place] % (Auto) 7.5 Eos % (Auto) 1.0 L Baso % (Auto) 0.5 Neut # (Auto) 6400 Lymph # (Auto) 1500 [place] # (Auto) 600 Eos # (Auto) 100 Baso # (Auto) 0 Sodium 141 Potassium 3.5 Chloride 110 H Carbon Dioxide 25 BUN 13 Creatinine 0.57 Estimated GFR > 60 BUN/Creatinine Ratio 22.8 H Glucose 99 Calcium 8.5 Magnesium 2.1 Total Bilirubin 1.0 AST 27 ALT 19 Alkaline Phosphatase 60 Total Protein 6.7 Albumin 3.9 Globulin 2.8 Albumin/Globulin Ratio 1.4 PFSH Medical History History of left heart catheterization Head injury Chronic thoracic back pain Chronic neck pain Somatic dysfunction of lower extremity Segmental and somatic dysfunction of rib cage Thoracic region somatic dysfunction Cranial somatic dysfunction Bilateral foot pain Vaginal dryness, menopausal Well woman exam with routine gynecological exam Family history of breast cancer in first degree relative Hypothyroidism (acquired) Hx of radioactive iodine thyroid ablation Cervical somatic dysfunction Neck stiffness Skin rash Shoulder pain Thyroid nodule Surgical History H/O tubal ligation Family History Father Stroke Mother Stroke Social History household members: spouse Smoking Status: Never smoker alcohol intake: never substance use type: does not use Discharge Assessment & Plan Assessment and Plan Assessment: PSBO Plan of Treatment: Patient should undergo continued gastroenterologic workup potentially including upper scope, capsule endoscopy, MR enteroclysis to see why this situation is happening intermittently. It seems unlikely to blame adhesions from just a tubal ligation, but that is possible. Discharge Plan Discharge Plan Patient Disposition: Home Discharge orders & Medications Prescriptions: New ondansetron 4 mg tablet,disintegrating 4 mg PO Q6H PRN (Reason: nausea and vomiting) Qty: 10 0RF tizanidine 2 mg tablet 2 mg PO Q8H PRN (Reason: muscle spasticity or pain) Qty: 90 0RF Continued amlodipine 10 mg tablet 10 mg PO DAILY lisinopril 40 mg tablet 40 mg PO DAILY benzonatate 200 mg capsule 200 mg PO BID PRN (Reason: cough) Qty: 28 0RF levothyroxine [Synthroid] 75 mcg tablet 75 mcg PO DAILY Qty: 90 1RF Follow up/Referrals: Lise Hutchins MD [Primary Care Provider] - Diet/Activity/Treatments Diet: Regular Diet comment: Soft easy to chew diet for the next week. Avoid steak or raw vegetables Other treatments: You may take simethicone as needed for bloating Skin/Wound/Dressing Care Report to your healthcare provider any signs of infection, such as:: chills, fever, night sweats, increased pain, unusual drainage and unusual redness Visit Report/Discharge Packet Instructions: DI for Small Bowel Obstruction Stand Alone Forms: Patient Portal/API, Stroke Signs & Symptoms Discharge Data Primary Care Provider: Lise Hutchins Attending Provider: Memo Wright Admit Date/Time: 05/21/24 10:34 PROFEE Charge Codes Discharge inpatient/observation: [id number]
--- NOTE | 2024-05-22 15:46 | CM.DANOTE ---
Patient is a 59 yo female who was admitted OBS Status on 05/21/24 for Abd Pain. Pt has [employer] for insurance and her PCP is Dr. Lise Hutchins at [facility]. EMR was reviewed. Per Surgeon, pt with hx of 4 prior SBOs the last one about 2 years ago and no surgical intervention at that time and pt with NGT and plan for clamping and advancing diet and pt had bm and gastrogafien study and medically stable to discharge today. Per RN, pt had medium bm, has been ambulating independently in room and tolerating clears and advancing diet and NGT discontinued and no concerns noted. Pt lives in [place] with her spouse and works at baseline and active and independent and preference is to discharge home with outpt f/u and does not anticipate any needs at d/c. Spouse will transport home. SONNY Beltran Discharge Planning/Care Management Advanced directive, confirm from FAMILY Start: 05/21/24 11:41 Freq: Q24H Status: Complete Protocol: Document 05/21/24 11:41 ESV (Rec: 05/21/24 11:42 ESV [id number]) Advance Directive, confirm on record Time 11:41 Person contacted patient Copy received No Document 05/22/24 11:41 CLP (Rec: 05/22/24 13:10 CLP [id number]) Advance Directive, confirm on record Time 11:41 Person contacted patient Copy received No Time 10:00 Person contacted Patient Copy received No
== END 2024-05-22 16:15 | disposition home or self-care (01) ==
LOC: ED 10:34 → AC 10:34
PROVIDERS: Admitting Provider Surgery; Emergency Provider Family Medicine; PCP Internal Medicine; Referring Provider Family Medicine; Visit Provider Surgery
DX: K56.609 Unspecified intestinal obstruction, unspecified as to partial versus complete obstruction (principal); I10 Essential (primary) hypertension; E03.9 Hypothyroidism, unspecified
CPT/HCPCS: 36415; 71045; 74018; 74177; 80053; 81003; 83690; 83735; 84484; 85025; 93005; 93010; 96361; 96365; 96366; 96375; 96376; 99284; G0378; J1171; J1885; J2405; Q9967

== ENCOUNTER → 2024-08-25 13:43 | Outpatient (CLI) | payer OTHER, SELFPAY ==
[2024-05-21 11:38] VITALS: BMI 23.8
--- NOTE | 2024-09-01 17:27 | DI.NM.S_ITS ---
DATE OF SERVICE: 08/25/2024 NUCLEAR CARDIOLOGY MYOCARDIAL PERFUSION STUDY PROCEDURE: Exercise treadmill stress and rest myocardial perfusion imaging with gating to assess ejection fraction and regional wall motion. ORDERING PROVIDER: Dr. Lise Hutchins. INDICATIONS: The patient is a 59-year-old female with chronic, atypical chest discomfort. CARDIAC STRESS: The patient was able to exercise for 9 minutes on a standard Roberto protocol suggesting excellent exercise capacity with an ADOLFO of -31%, achieving 10.1 METs. She had a normal heart rate response, achieving a maximum heart rate of 146 bpm (91% of her predicted maximum). She had a borderline hypertensive blood pressure response with a resting blood pressure of 140/92, increasing to a maximum of 166/100. She had no chest discomfort or other anginal symptoms. Her resting ECG shows sinus rhythm with normal ST segments. With stress, there are no significant ST-segment shifts and only rare, isolated PACs and PVCs without any sustained arrhythmias. At 8 minutes of exercise at a heart rate of 140 bpm, 25.8 mCi of technetium-99m Myoview was injected and she was imaged 15 minutes later using a gated SPECT acquisition protocol. Seven days later while at rest, she was injected with 25.5 mCi of technetium-99m Myoview and was imaged 15 minutes later, again using a gated SPECT acquisition protocol. FINDINGS: 1. Raw data: There is fairly good myocardial tracer uptake with mild breast shadows noted. The lung/heart ratio is normal at 0.28 with a normal TID ratio of 0.90. 2. Quantitated gated SPECT: Post-stress ejection fraction is 73% without any focal wall motion abnormality. The resting ejection fraction is 64% although visually appears unchanged from the post- stress ejection fraction. Resting end-diastolic volume is normal at 85 mL. 3. Myocardial perfusion imaging: Post-stress supine images show a fairly normal myocardial perfusion pattern without any concerning perfusion defects, supported by normal perfusion imaging in the prone position. The resting images show a similar perfusion pattern although with a slight apical defect that likely reflects breast attenuation artifact. IMPRESSION: 1. Normal myocardial perfusion study. 2. No concerning perfusion defects to suggest myocardial ischemia or previous myocardial infarction. 3. Normal left ventricular size and systolic function without focal wall motion abnormality. 4. No angina or ECG evidence of ischemia with excellent exercise capacity. She had a mild hypertensive blood pressure response and rare PACs and PVCs with stress but no concerning arrhythmias. Alaina Singer RENAY/letitia/KS doc#: [id number]/job#: [id number] dd: 09/01/2024 17:08:00 dt: 09/01/2024 17:18:00 DICTATING MD/COPIES TO: Anthony Guerra MD; Lise Hutchins M.D. COPIES MNE: YANETH;
== END ==
LOC: NUCM 13:44
PROVIDERS: PCP Internal Medicine; Referring Provider Internal Medicine; Visit Provider Internal Medicine
DX: R07.9 Chest pain, unspecified (principal)
CPT/HCPCS: 78452; 93017; A9502